=== PATIENT | female | born 1975 | race Caucasian/White ===

== ENCOUNTER 2020-12-14 14:57 | Outpatient (REF) | payer OTHER, SELFPAY ==
--- NOTE | ~2020-12-14 | MM_ITS ---
EXAMINATION: MM DIAGNOSTIC DIGITAL BREAST TOMOSYNTHESIS, BILATERAL US DIAGNOSTIC ULTRASOUND BREAST, LEFT CLINICAL INFORMATION: Due for yearly. 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 The lifetime risk of breast cancer based on the Tyrer-Cuzick Model is 12%. COMPARISON: Mammography: 12/08/2019, 06/02/2019, 09/28/2018, 09/16/2018 (BI-RADS 0, baseline); ultrasound left breast 12/08/2019, 06/02/2019, 09/28/2018. TECHNIQUE: Digital breast tomosynthesis is performed in both the craniocaudal and mediolateral oblique views along with computer-aided detection (CAD). Synthesized 2D images are generated from the tomosynthesis. Ultrasound left breast is targeted to the upper breast. Grayscale imaging and color Doppler are performed without and with harmonics. FINDINGS: The breasts are heterogeneously dense, which may obscure small masses (ACR BI-RADS breast composition Category c). Breast tissue composition borders on average fibroglandular. Parenchymal pattern is similar to prior studies. There is no developing density or interval mass or architectural abnormality. No abnormal calcifications. The probable fibroadenoma upper left breast is stable. There is a dermal lesion again seen overlying the upper right breast. The axilla are unremarkable. Ultrasound left breast demonstrates stable circumscribed nodule 12:00 position 4 cm from nipple measuring approximately 0.9 x 0.4 x 0.7 cm. This is similar in size, echogenicity, and shape when compared with prior exams dating back to initial diagnostic targeted ultrasound 09/28/2018. Initial dimensions also 0.9 x 0.4 x 0.7 cm on 09/28/2018. The lesion is now considered benign, most likely a fibroadenoma. Results are discussed with the patient at time of visit. MM/MM tomosynthesis diagnostic BI IMPRESSION: 1. No mammographic evidence of malignancy. 2. Nodule upper left breast stable when compared with prior diagnostic studies and now considered to be benign, likely a fibroadenoma. ASSESSMENT: BI-RADS 2: Benign RECOMMENDATION: Routine annual mammography screening. This patient's information was entered into a reminder system with a target due date for their next mammogram.
== END 2020-12-14 14:58 | disposition home or self-care (01) ==
LOC: HO.MAMMO 14:57
PROVIDERS: Visit Provider Internal Medicine
DX: R92.2 Inconclusive mammogram (principal)
CPT/HCPCS: 76642; 77062; 77066

== ENCOUNTER 2021-01-16 09:47 | Outpatient (REF) | payer OTHER, SELFPAY ==
--- NOTE | ~2021-01-16 | XR_ITS ---
EXAMINATION: XR LUMBOSACRAL SPINE WITH OBLIQUES CLINICAL INFORMATION: Low back pain COMPARISON: None TECHNIQUE: AP, both oblique, and lateral views of the lumbar spine. Lateral view of the lumbosacral junction. FINDINGS: There is normal lumbar lordosis. The vertebral heights, alignment and disc heights are normal. No visible acute fracture or dislocation seen. The soft tissues are normal. XR/XR lumbar spine 4V min IMPRESSION: Unremarkable lumbar spine exam.
== END 2021-01-16 09:48 | disposition home or self-care (01) ==
LOC: HO.XRAY 09:47
PROVIDERS: PCP Internal Medicine; Visit Provider Registered Nurse
DX: G89.29 Other chronic pain (principal); M54.5 Low back pain
CPT/HCPCS: 72110

== ENCOUNTER 2021-02-13 10:54 | Outpatient (REF) | payer OTHER, SELFPAY ==
--- NOTE | ~2021-02-13 | XR_ITS ---
EXAMINATION: XR KNEE, LEFT CLINICAL INFORMATION: Left knee pain COMPARISON: November 17, 2018 TECHNIQUE: Four views of the left knee. FINDINGS: There is no evidence of acute fracture or dislocation of the left knee. Left knee joint spaces are maintained. Mild spurring undersurface of the patella. There is a left knee effusion. XR/XR knee LT 4V IMPRESSION: Left knee effusion. Mild patellofemoral joint degenerative change.
== END 2021-02-13 10:55 | disposition home or self-care (01) ==
LOC: HO.XRAY 10:54
PROVIDERS: PCP Internal Medicine; Visit Provider Internal Medicine
DX: M25.562 Pain in left knee (principal)
CPT/HCPCS: 73564

== ENCOUNTER → 2021-02-20 12:22 | Outpatient (BNVA) | payer OTHER, SELFPAY | PROVIDERS: Visit Provider Orthopaedic Surgery | DX: S76.312A Strain of muscle, fascia and tendon of the posterior muscle group at thigh level, left thigh, initial encounter (principal) | CPT/HCPCS: 99202 ==

== ENCOUNTER 2021-03-30 09:59 | Outpatient (REF) | payer OTHER, SELFPAY ==
[2021-03-30 10:59] LABS: Alanine Aminotransferase 8 U/L (0-31); Albumin Level 4.4 g/dL (3.5-5.0); Alkaline Phosphatase 53 U/L (39-117); Anion Gap 13 (12-20); Aspartate Amino Transferase 13 U/L (5-31); Bilirubin Direct < 0.2 mg/dL (0.0-0.5); Bilirubin Total 0.3 mg/dL (0.0-1.0); Blood Urea Nitrogen 7 mg/dL (9-16); Calcium 9.3 mg/dL (8.4-10.2); Carbon Dioxide 26 mmol/L (22-29); Chloride 107 mmol/L (96-108); Estimated Glomerular Filt Rate > 60; Glucose Random 98 mg/dL (60-115); Potassium 4.5 mmol/L (3.3-5.1); Sodium 141 mmol/L (135-145); Total Protein 6.6 g/dL (6.5-8.0)
[2021-03-30 11:22] LABS: TSH reflex Free T4 0.55 uIU/mL (0.32-4.0)
== END 2021-03-30 10:00 | disposition home or self-care (01) ==
LOC: HO.LAB 09:59
PROVIDERS: PCP Internal Medicine; Visit Provider Internal Medicine
DX: Z00.00 Encounter for general adult medical examination without abnormal findings (principal)
CPT/HCPCS: 36415; 80048; 80076; 82306; 84443

== ENCOUNTER 2021-05-16 17:00 | Outpatient (RCR) | payer OTHER, SELFPAY ==
--- NOTE | 2021-04-18 18:21 | MHC.PT.EP ---
[facility] [place] Office [place] Office [place] Office [address] Shanthi Alba [address] [phone] F: [phone] F: [phone] F: [phone] F: [phone] Physical Therapy Plan of Care Date of Evaluation: Date of Surgery: n/a Diagnosis: Strain of muscle, fascia and tendon of the posterior muscle group at thigh level, left thigh Strain of L hamstring Assessment: Pt is a 46yo F who presents today with L knee pain after jumping in January. She presents with current impairments in pain, swelling, limited knee flexion, decreased strength, soft tissue restrictions and proper body mechanics. She is limited functionally by bending, squatting, prolonged standing, and walking. She is an excellent candidate for skilled PT services to address current impairments in order to facilitate return to PLOF. Frequency and Duration: The patient will be seen 2x/week for 4 weeks Short Term Goals: Pt will be I with HEP to promote self management of symptoms Pt will improve L knee flexion ROM by 5 degrees Residential Goals: Pt will improve hamstring and quad strength by 1 grade to improve ambulation tolerance. Pt will perform squatting with improved mechanics with pain < 2/10 to assist with work related tasks. Pt will demonstrate improvements in functional mobility as evidenced by statistically significant improvement in LEFI outcome measure Treatment Plan: Modalities to reduce pain, spasms and effusion. Manual therapy to restore motion and function. Therapeutic exercise to improve strength and flexibility. Neuromuscular re-education for posture and balance. Therapeutic activities to return to functional activities of daily living. Electronically signed by: Vidhya Stafford, PT, DPT Please sign and return to therapist. Thank you for your referral.
--- NOTE | 2021-06-07 11:50 | MHC.PT.DC ---
[facility] [place] Office [place] Office [place] Office [address] Shanthi Alba 140 [facility] [phone] F: [phone] F: [phone] F: [phone] F: [phone] Physical Therapy Discharge Report Diagnosis: Strain of muscle, fascia and tendon of the posterior muscle group at thigh level, left thigh Strain of L hamstring Date of Surgery: n/a Date of Evaluation: 04/18/21 Date of Discharge: 06/07/21 Treatments to Date: 6 Cancellations to Date: 3 No Shows to Date: 3 Discharge Status: Visit Non-compliance Discharge Summary: Pt last attended visit was 05/16/21. She has had 3 no-show's since last attended visit. Pt is being D/C from skilled PT services per [facility] attendance policy and visit non-compliance. Pt current level of function unknown at this time. Electronically signed by: Vidhya Stafford, PT, DPT Please sign and return to therapist. Thank you for your referral.
== END 2021-06-07 11:50 | disposition home or self-care (01) ==
LOC: HO.PT 17:00
PROVIDERS: PCP Internal Medicine; Visit Provider Orthopaedic Surgery
DX: S76.312A Strain of muscle, fascia and tendon of the posterior muscle group at thigh level, left thigh, initial encounter (principal)
CPT/HCPCS: 97110; 97140; 97150; 97161; 97164; 97530

== ENCOUNTER 2021-05-25 10:44 | Outpatient (REF) | payer OTHER, SELFPAY ==
--- NOTE | ~2021-05-25 | XR_ITS ---
EXAMINATION: XR CHEST CLINICAL INFORMATION: Abnormal weight loss COMPARISON: None TECHNIQUE: 2 views of the chest were obtained. FINDINGS: The cardiac and mediastinal contours are normal. There may be a small 3 mm left upper lobe nodule. This overlies the left anterior third rib. The lungs are otherwise clear. There is no pleural effusion or pneumothorax. Bony structures are unremarkable. XR/XR chest 2V IMPRESSION: Question small 3 mm left upper lobe nodule. Otherwise unremarkable exam.
== END 2021-05-25 10:45 | disposition home or self-care (01) ==
LOC: HO.XRAY 10:44
PROVIDERS: PCP Internal Medicine; Visit Provider Internal Medicine
DX: R63.4 Abnormal weight loss (principal)
CPT/HCPCS: 71046

== ENCOUNTER 2021-09-17 10:02 | Outpatient (REF) | payer OTHER, SELFPAY ==
[2021-09-17 10:46] LABS: COVID-19 Test Negative (Negative)
== END 2021-09-17 10:03 | disposition home or self-care (01) ==
LOC: HO.LAB 10:02
PROVIDERS: PCP Internal Medicine; Visit Provider Internal Medicine
DX: Z20.822 Contact with and (suspected) exposure to COVID-19 (principal)
CPT/HCPCS: 87635; C9803

== ENCOUNTER → 2022-03-05 14:26 | Outpatient (BNVA) | payer OTHER, SELFPAY | PROVIDERS: PCP Internal Medicine; Referring Provider Internal Medicine; Visit Provider Physician Assistant | DX: Z01.818 Encounter for other preprocedural examination (principal) | CPT/HCPCS: 99202 ==

== ENCOUNTER 2022-05-06 14:18 | Outpatient (REF) | payer OTHER, SELFPAY ==
--- NOTE | ~2022-05-06 | US_ITS ---
EXAMINATION: US SOFT TISSUE OF THE NECK CLINICAL INFORMATION: Mass posterior cervical. COMPARISON: None. TECHNIQUE: Linear transducer grayscale and color Doppler examination of the left posterior neck, 2 areas/lumps. FINDINGS: Limited imaging through the left neck or the lump area reveals small lymph node measuring 0.9 x 0.3 x 0.8 cm. This is oval shaped with central echogenic medulla. No increased vascularity seen. US/US soft tiss head and/or neck IMPRESSION: Small lump left posterior neck corresponds to a normal lymph node.
== END 2022-05-06 14:19 | disposition home or self-care (01) ==
LOC: HO.US 14:18
PROVIDERS: Visit Provider Family Medicine
DX: R59.0 Localized enlarged lymph nodes (principal)
CPT/HCPCS: 76536

== ENCOUNTER 2023-01-06 09:25 | Outpatient (REF) | payer MEDICAID, SELFPAY ==
--- NOTE | ~2023-01-06 | XR_ITS ---
EXAMINATION: XR CERVICAL SPINE CLINICAL INFORMATION: Right-sided neck pain/radiculopathy phone at COMPARISON: None available. TECHNIQUE: 3 views of the cervical spine were obtained. FINDINGS: There is mild straightening of cervical lordosis. The vertebral heights, alignment and disc heights are normal. There is no visible acute fracture, dislocation or subluxation seen. The prevertebral soft tissues are normal. XR/XR cervical spine 3V IMPRESSION: Mild straightening of cervical lordosis likely spasm. No visible acute fracture or dislocation seen.
== END 2023-01-06 09:26 | disposition home or self-care (01) ==
LOC: HO.HHCX 09:25
PROVIDERS: Visit Provider Family Medicine
DX: M54.2 Cervicalgia (principal); S29.012A Strain of muscle and tendon of back wall of thorax, initial encounter; M54.10 Radiculopathy, site unspecified; X58.XXXA Exposure to other specified factors, initial encounter; Y93.9 Activity, unspecified; Y92.9 Unspecified place or not applicable; Y99.9 Unspecified external cause status
CPT/HCPCS: 72040

== ENCOUNTER 2023-01-30 13:46 | Outpatient (RCR) | payer MEDICAID, SELFPAY | END 2023-03-19 07:51 | disposition home or self-care (01) | LOC: HO.PT 13:46 | PROVIDERS: PCP Internal Medicine; Visit Provider Family Medicine | DX: M54.10 Radiculopathy, site unspecified (principal) | CPT/HCPCS: 97110; 97140; 97161 ==

== ENCOUNTER 2023-04-02 09:00 | Outpatient (REF) | payer MEDICAID, SELFPAY ==
--- NOTE | 2023-04-02 09:06 | EMG_ITS ---
Right median and ulnar motor and sensory studies were performed. Right radial sensory study was performed. Right median and lateral antecubital brachial sensory studies were performed and needle examination was performed. IMPRESSION: 1. Mild right median neuropathy across carpal tunnel. 2. Mild right ulnar neuropathy across cubital tunnel. 3. No evidence of radiculopathy. MD REINA Newman/RACHEL / [id number]
== END 2023-04-02 09:01 | disposition home or self-care (01) ==
LOC: HO.NEURO 09:00
PROVIDERS: PCP Internal Medicine; Visit Provider Family Medicine
DX: M54.10 Radiculopathy, site unspecified (principal)
CPT/HCPCS: 95886; 95910

== ENCOUNTER 2023-07-30 14:28 | Outpatient (REF) | payer MEDICAID, SELFPAY | END 2023-07-30 14:29 | disposition home or self-care (01) | LOC: HO.HHCL 14:28 | PROVIDERS: Visit Provider Advanced Practice Midwife | DX: N89.8 Other specified noninflammatory disorders of vagina (principal); N92.6 Irregular menstruation, unspecified; E03.9 Hypothyroidism, unspecified | CPT/HCPCS: 36415; 84439; 84443; 87480; 87510; 87660 ==

== ENCOUNTER 2023-09-10 13:54 | Outpatient (REF) | payer MEDICAID, SELFPAY | END 2023-09-10 13:55 | disposition home or self-care (01) | LOC: HO.MAMMO 13:54 | PROVIDERS: PCP Internal Medicine; Visit Provider Advanced Practice Midwife | DX: Z12.31 Encounter for screening mammogram for malignant neoplasm of breast (principal) | CPT/HCPCS: 77063; 77067 ==

== ENCOUNTER → 2023-09-10 14:15 | Outpatient (BNV) | payer MEDICAID, SELFPAY | PROVIDERS: PCP Internal Medicine; Visit Provider Radiology Diagnostic Radiology | DX: Z12.31 Encounter for screening mammogram for malignant neoplasm of breast (principal) | CPT/HCPCS: 77063; 77067 ==

== ENCOUNTER 2023-10-29 08:53 | Outpatient (REF) | payer MEDICAID, SELFPAY ==
[2023-10-29 11:29] LABS: MANUAL DIFF FLAG NO
[2023-10-29 11:47] LABS: Basophils Absolute Auto 0.1 X10*3/uL (0.0-0.2); Basophils Percent Auto 1.3 % (0-2); Eosinophils Absolute Auto 0.2 X10*3/uL (0.0-0.4); Eosinophils Percent Auto 3.6 % (0-4); Hematocrit 44.3 % (37.0-47.0); Hemoglobin 14.5 g/dl (12.0-16.0); Imm Gran Abs Auto 0.02 X10*3/uL (0.00-0.03); Imm Gran Pct Auto 0.3 % (0.0-0.4); Lymphocytes Percent Auto 32.1 % (20-40); Mean Corpuscular HGB Conc 32.7 g/dl (31.0-35.0); Mean Corpuscular Hemoglobin 30.3 pg (27.0-33.0); Mean Corpuscular Volume 92.5 fL (80.0-98.0); Mean Platelet Volume 10.6 fL (9.4-12.3); Monocytes Absolute Auto 0.5 X10*3/uL (0.1-1.2); Monocytes Percent Auto 8.6 % (2-11); Neutrophils Absolute Auto 3.3 x10*3/uL (2.0-8.3); Neutrophils Percent Auto 54.1 % (45-73); Platelet Count 209 X10*3/uL (160-400); Red Blood Count 4.79 X10*6/uL (4.20-5.50); Red Cell Distribution Width 12.5 % (11.0-16.0); White Blood Count 6.1 X10*3/uL (4.8-10.8)
[2023-10-29 11:58] LABS: Iron 106 mcg/dL (30-160); Percent Iron Saturation 40 % (15-50); Total Iron Binding Capacity 264 mcg/dL (228-428); Unsaturated Iron Binding 158 ug/dL
[2023-10-29 12:16] LABS: TSH reflex Free T4 0.33 uIU/mL (0.32-4.0)
== END 2023-10-29 08:54 | disposition home or self-care (01) ==
LOC: HO.HHCL 08:53
PROVIDERS: Visit Provider Internal Medicine
DX: E61.1 Iron deficiency (principal); E03.9 Hypothyroidism, unspecified
CPT/HCPCS: 36415; 83540; 84443; 85025

== ENCOUNTER 2024-01-22 10:28 | Day surgery (SDC) | payer MEDICAID, SELFPAY ==
--- NOTE | 2024-01-21 12:12 | P.CONAN_ITS ---
Documented by User: Maria Fernanda Flores NP 01/21/24 12:12 HPI - Anesthesia Eval Consult details Narrative: 48yo F for Colonoscopy PMFSH Active Problems Active Problems: All Active Problems Swelling of right upper eyelid (Acute) Encounter for screening colonoscopy (Acute) Past Medical History Medical History (Updated 01/20/24 @ 14:36 by Blanca Braun RN) Hemorrhoids Hypothyroid Surgical History Surgical History Previous section History of appendectomy H/O thyroidectomy Social History Social History (Updated 03/05/22 @ 14:45 by Esther Davila PA-C) Household Members Other:: 2 kids Patient Tobacco Use Status: Current everyday Tobacco user Tobacco use type: Cigarette Cigarettes Per Day: 5 Use of substances other than those prescribed or required for medical reasons: No Are you DNR?: No Advance Directives: No Advance Directives Information Provided: Yes Current occupational status: employed Current occupation: Teacher at [employer]. Meds Allergies Allergy/AdvReac Type Severity Reaction Status Date / Time metronidazole Allergy Mild Itching Verified 03/05/22 15:28 Home Medications ?Medication ?Instructions ?Recorded ?Confirmed ?Last Taken ?Type bupropion HCl 300 mg 24 hr tablet, 300 mg PO QAM 02/20/21 01/20/24 Unknown History extended release lamotrigine 100 mg tablet 100 mg PO DAILY 02/20/21 01/20/24 Unknown History (Lamictal) levothyroxine 175 mcg capsule 175 mcg PO DAILY 02/20/21 01/20/24 Unknown History Exam Height,Weight and Vital Signs: Height 5 ft 4 in Assessment and Plan Assessment Anesthesia Assessment: Chart Reviewed Documented by User: Nayely Thacker MD 01/22/24 10:57 PMFSH Past Medical History Medical History (Updated 01/20/24 @ 14:36 by Blanca Braun RN) Hemorrhoids Hypothyroid Family History Family history of problems with anesthesia: No Surgical History Surgical History Previous section History of appendectomy H/O thyroidectomy History of Problems with Anesthesia: No Social History Social History (Updated 03/05/22 @ 14:45 by Esther Davila PA-C) Household Members Other:: 2 kids Patient Tobacco Use Status: Current everyday Tobacco user Tobacco use type: Cigarette Cigarettes Per Day: 5 Use of substances other than those prescribed or required for medical reasons: No Are you DNR?: No Advance Directives: No Advance Directives Information Provided: Yes Current occupational status: employed Current occupation: Teacher at [employer]. Meds Allergies Allergy/AdvReac Type Severity Reaction Status Date / Time metronidazole Allergy Mild Itching Verified 03/05/22 15:28 Home Medications ?Medication ?Instructions ?Recorded ?Confirmed ?Last Taken ?Type bupropion HCl 300 mg 24 hr tablet, 300 mg PO QAM 02/20/21 01/20/24 Unknown History extended release lamotrigine 100 mg tablet 100 mg PO DAILY 02/20/21 01/20/24 Unknown History (Lamictal) levothyroxine 175 mcg capsule 175 mcg PO DAILY 02/20/21 01/20/24 Unknown History Exam Airway Mallampati Class: II TM Dist: >3cm Neck ROM: Full Heart: rrr Lungs: cta Assessment and Plan Assessment Anesthesia Assessment: Anesthesia Plan Discussed Final Anesthetic Review Family History of Problems with Anesthesia: No History of Problems with Anesthesia: No NPO: Yes ASA Class: II Final Preanesthetic Review: No Changes in Pt Med Stat, Meds/Allgs Chart Reviewed and Consent Obtained/Reviewed Patient Risk: Low Procedure Risk: Low Anesthetic Plan Anesthetic Plan: MAC: Disposition: Standard PACU
--- NOTE | ~2024-01-22 | CT_ITS ---
EXAMINATION: CT COLONOGRAPHY CLINICAL INFORMATION: Incomplete colonoscopy. COMPARISON: None available. TECHNIQUE: Bowel preparation: Suboptimal. Significant retained material limits the study. Stool tagging with Gastrografin and barium: Not utilized. Colonic distention: CO2 mechanical insufflator used via enema tube with incomplete distention. Acquisition: Low dose imaging targeted to colonic was performed in the supine and prone positions. Procedure: No immediate complication reported. Review: The acquired images were reviewed in axial, coronal and sagittal planes. Additional 3-D fly through images were reviewed at an independent workstation. This CT examination was performed using dose optimization techniques as appropriate, variously including the following: *Automated exposure control *Adjustment of mA and/or kV according to patient size (this includes techniques or standardized protocols for targeted exams where dose is matched to indication/reason for exam; i.e. extremities or head) *Use of iterative reconstruction technique DLP: 485 mGy-cm FINDINGS: Colonic findings: The study is severely limited. The colon is not well distended. Retained material limits assessment. Small or moderate-sized abnormalities would not be detectable No large colonic mass demonstrated Non-colonic findings: No suspicious noncolonic findings demonstrated. There are some linear and reticular opacities in the lower chest on each side which are likely postinflammatory CT/CT colonography IMPRESSION: Essentially nondiagnostic examination due to incomplete distention and retained material. Small or moderate-sized abnormalities would not be detectable. No large colonic mass.
[2024-01-22 10:41] VITALS: BMI 27.1
[2024-01-22 10:43] VITALS: BP 112/66; PULSE 90; RESP 16; TEMP 36.3; O2SAT 99
[2024-01-22 10:51] LABS: UPreg QC Valid YES; Urine Pregnancy NEGATIVE (NEGATIVE)
[2024-01-22] MEDS: Lactated Ringers 1,000 ML 100 ML IVCONT (10:53)
--- NOTE | 2024-01-22 12:37 | MHC.SHP ---
Pre-Procedural Eval Section A - 24 Hr Update-Section A only Date of Service: 01/22/24 The patient is an INPATIENT: No The patient has been examined within 24 hours of the surgical procedure. The History & Physical has been completed within 30 days and I have reviewed it.: No Section B - Complete if H&P > 30 days Chief Complaint: screening Relevant Family History (Specify if Yes): No Relevant Social History: None Present Medications: see Short Stay Collaborative assessment Medical History: Significant History (Hypothyroidism) History of Previous Operations: Relevant previous surgery/procedure and date(s) (H/O thyroidectomy History of appendectomy Previous section) Allergies: Allergies Allergy/AdvReac Type Severity Reaction Status Date / Time metronidazole Allergy Mild Itching Verified 03/05/22 15:28 Review of Systems Sugical H&P ROS: Negative: Constitution, Cardiovascular, Respiratory and Gastrointestinal Exam Surgical H&P Exam: Normal: Heart, Normal: Lungs, Normal: Extremities and Normal: Abdomen Plan Diagnosis/Plan: Unchanged I have reviewed the history and physical and performed a pertinent physical examination on my patient. No changes have occurred unless specified. Time Spent With Patient Time: Total time managing care of this patient today ____ minutes.
--- NOTE | 2024-01-22 13:27 | HO.OPN-COLON ---
Colonoscopy Operative Note Operative Note Date of Service: 01/22/24 Narrative: COLONOSCOPY TILL THE HEPATIC FLEXURE WITH BIOPSIES Pre-op diagnosis: Colon cancer screening. Post-op diagnosis:? Colon polyps, hemorrhoids Endoscopist:? Mishel Wallace MD Anesthesia:?MAC Consent: Indications for the procedure and potential complications of bleeding, perforation, reaction to medications and missed diagnosis were discussed with the patient and informed consent was obtained. Instrument: Olympus PCF H 190 L pediatric colonoscope and CF H 190 L variable stiffness adult colonoscope Monitoring: Vital signs and clinical assessment, intermittent blood pressure monitoring, continuous EKG monitoring, Pulse oximetry and Carbon Dioxide monitoring were done throughout the procedure. Please see anesthesia flowsheet. Colon withdrawl time was 15 minutes. Procedure: The patient was placed in the left lateral decubitis position and pre-procedure medications were administered. After a digital rectal examination of the ano-rectum, the video colonoscope was inserted into the rectum and advanced through the colon to the hepatic flexure. It was not possible to advance further due to a long and redundant colon. Pediatric colonoscope was removed, and an adult colonoscope was introduced into the rectum and advanced to the hepatic flexure. It was not possible to advanced further despite repositioning the patient to the supine and right lateral decubitus position. The colonoscope was slowly withdrawn in a retrograde panoramic fashion and the colon mucosa was carefully examined including a retroflexed view of the rectum. Findings and interventions are described below. Procedure Difficulty: LLQ pressure was applied to intubate the ascending colon Incomplete colonoscopy due to a long and redundant colon Findings: Terminal Ileum: Not evaluated Cecum: Normal Ascending Colon: Normal Transverse Colon: Three 4-5 mm sessle polyps - removed with a cold biopsy Descending Colon: Normal Sigmoid Colon: Normal Rectum: Normal Ano-rectum: Moderate internal hemorrhoids Colon preparation: Excellent, after some irrigation. [place] Bowel Preparation Scale Right colon; 3 Transverse colon: 3 Left colon; 3 (0 = Unprepared colon segment with mucosa not seen due to solid stool that cannot be cleared. 1 = Portion of mucosa of the colon segment seen, but other areas of the colon segment not well seen due to staining, residual stool and/or opaque liquid. 2 = Minor amount of residual staining, small fragments of stool and/or opaque liquid, but mucosa of colon segment seen well. 3 = Entire mucosa of colon segment seen well with no residual staining, small fragments of stool or opaque liquid) Impression and Post Procedure Diagnosis: Colonoscopy Findings: Three small polyps were removed Moderate hemorrhoids on retroflexed exam. Plan: I will send a letter with biopsy results. Patient will be scheduled for a CT colonography to examine the right colon. Repeat Colonoscopy in 3-5 years if polyps are adenomatous and 10 year if polyps are hyperplastic. Above findings were reviewed with the patient and relevant handouts were given and the discharge area. BIOPSIES SHOWED: Colon, transverse, 3 polyps: Colonic mucosa with minimal hyperplastic changes (2 pieces) and colonic mucosa (1 piece) with no specific change; negative for adenomatous dysplasia ADDENDUM: CT COLONOGRAPHY SHOWED: Colonic findings: The study is severely limited. The colon is not well distended. Retained material limits assessment. Small or moderate-sized abnormalities would not be detectable No large colonic mass demonstrated Non-colonic findings: No suspicious noncolonic findings demonstrated. There are some linear and reticular opacities in the lower chest on each side which are likely postinflammatory IMPRESSION: Essentially nondiagnostic examination due to incomplete distention and retained material. Small or moderate-sized abnormalities would not be detectable. No large colonic mass. On 01/29/24 @ 17:58 Mishel Wallace Wrote To Esther Davila Pt called with biopsy and CT colonography results. Advised [address] colonography versus colonoscopy with a single or double balloon enteroscope
[2024-01-22 13:28] VITALS: BP 100/54; PULSE 79; RESP 18; TEMP 36.3; O2SAT 98
[2024-01-22 13:43] VITALS: BP 105/67; PULSE 67; RESP 16; O2SAT 100
[2024-01-22] MEDS: Acetaminophen 325 MG TABLET PO (13:44)
[2024-01-22 13:58] VITALS: BP 105/66; PULSE 80; RESP 15; TEMP 36.4; O2SAT 100
--- NOTE | 2024-01-22 14:28 | PC.NURSE ---
Patient back ffrom CT scan . Dr. Wallace at bedside. States patient an be discharged at this time.
== END 2024-01-22 15:00 | disposition home or self-care (01) ==
PROVIDERS: Nurse Practitioner; PCP Internal Medicine; Visit Provider Internal Medicine Gastroenterology
PROC: 0DJD8ZZ Inspection of Lower Intestinal Tract, Via Natural or Artificial Opening Endoscopic (ICD-10-PCS; CPT 45378; principal; 2024-01-22 11:10)
DX: Z12.11 Encounter for screening for malignant neoplasm of colon (principal); Q43.8 Other specified congenital malformations of intestine; K63.5 Polyp of colon; K64.8 Other hemorrhoids; R14.0 Abdominal distension (gaseous); Z79.899 Other long term (current) drug therapy; Z88.8 Allergy status to other drugs, medicaments and biological substances
CPT/HCPCS: 45380; 74261; 81025; 88305; J2704

== ENCOUNTER → 2024-01-22 10:28 | Outpatient (BNV) | payer MEDICAID, SELFPAY | PROVIDERS: PCP Internal Medicine; Visit Provider Internal Medicine Gastroenterology | DX: Z12.11 Encounter for screening for malignant neoplasm of colon (principal); K63.5 Polyp of colon; K64.8 Other hemorrhoids | CPT/HCPCS: 45380 ==

== ENCOUNTER 2024-04-18 14:01 | Outpatient (REF) | payer MEDICAID, SELFPAY ==
[2024-04-18 17:11] LABS: Hematocrit 40.8 % (37.0-47.0); Hemoglobin 13.4 g/dl (12.0-16.0); Mean Corpuscular HGB Conc 32.8 g/dl (31.0-35.0); Mean Corpuscular Hemoglobin 30.6 pg (27.0-33.0); Mean Corpuscular Volume 93.2 fL (80.0-98.0); Mean Platelet Volume 10.7 fL (9.4-12.3); Platelet Count 205 X10*3/uL (160-400); Red Blood Count 4.38 X10*6/uL (4.20-5.50); Red Cell Distribution Width 13.1 % (11.0-16.0); White Blood Count 7.2 X10*3/uL (4.8-10.8)
[2024-04-18 17:16] LABS: Estimated Average Glucose 88 mg/dL; Hemoglobin A1c % 4.7 % (<6.0)
[2024-04-18 17:40] LABS: Alanine Aminotransferase 11 U/L (0-31); Albumin Level 4.4 g/dL (3.5-5.0); Alkaline Phosphatase 50 U/L (39-117); Anion Gap 11 (12-20); Aspartate Amino Transferase 12 U/L (5-31); Bilirubin Direct 0.1 mg/dL (0.0-0.5); Bilirubin Total 0.3 mg/dL (0.0-1.0); Blood Urea Nitrogen 9 mg/dL (9-16); Calcium 9.4 mg/dL (8.4-10.2); Carbon Dioxide 25 mmol/L (22-29); Chloride 109 mmol/L (96-108); Estimated Glomerular Filt Rate > 60; Glucose Random 105 mg/dL (60-115); Potassium 3.6 mmol/L (3.3-5.1); Sodium 141 mmol/L (135-145)
[2024-04-18 17:47] LABS: Free T4 (Free Thyroxine) 1.07 ng/dL (0.71-1.85); Thyroid Stimulating Hormone 0.39 uIU/mL (0.32-4.0); Vitamin D 25-OH Total 41.3 ng/mL (>30)
[2024-04-18 17:50] LABS: Folate 11.5 ng/mL (> or = 4.0); Vitamin B12 347 pg/mL (200-900)
[2024-04-19 15:13] LABS: RPR Rapid Plasma Reagin NON-REACTIVE (NON-REACTIVE)
== END 2024-04-18 14:02 | disposition home or self-care (01) ==
LOC: HO.HHCL 14:01
PROVIDERS: Visit Provider Family Medicine
DX: R68.89 Other general symptoms and signs (principal)
CPT/HCPCS: 36415; 80048; 80076; 82306; 82607; 82746; 83036; 84439; 84443; 85027; 86592

== ENCOUNTER 2024-08-31 15:34 | Outpatient (REF) | payer MEDICAID, SELFPAY ==
[2024-08-31 16:25] LABS: MANUAL DIFF FLAG NO
[2024-08-31 16:29] LABS: Basophils Absolute Auto 0.1 X10*3/uL (0.0-0.2); Basophils Percent Auto 1.6 % (0-2); Eosinophils Absolute Auto 0.2 X10*3/uL (0.0-0.4); Eosinophils Percent Auto 2.7 % (0-4); Hematocrit 43.7 % (37.0-47.0); Hemoglobin 14.8 g/dl (12.0-16.0); Imm Gran Abs Auto 0.03 X10*3/uL (0.00-0.03); Imm Gran Pct Auto 0.4 % (0.0-0.4); Lymphocytes Absolute Auto 2.4 X10*3/uL (1.2-4.9); Lymphocytes Percent Auto 31.2 % (20-40); Mean Corpuscular HGB Conc 33.9 g/dl (31.0-35.0); Mean Corpuscular Hemoglobin 30.8 pg (27.0-33.0); Mean Corpuscular Volume 90.9 fL (80.0-98.0); Mean Platelet Volume 9.9 fL (9.4-12.3); Monocytes Absolute Auto 0.5 X10*3/uL (0.1-1.2); Monocytes Percent Auto 6.5 % (2-11); Neutrophils Absolute Auto 4.4 x10*3/uL (2.0-8.3); Neutrophils Percent Auto 57.6 % (45-73); Platelet Count 255 X10*3/uL (160-400); Red Blood Count 4.81 X10*6/uL (4.20-5.50); Red Cell Distribution Width 13.9 % (11.0-16.0); White Blood Count 7.7 X10*3/uL (4.8-10.8)
[2024-08-31 16:35] LABS: Appearance Urine Clear; Color Urine Yellow; Glucose Urine UA Negative (Negative); Leukocyte Esterase Urine Negative (Negative); Nitrite Urine Negative (Negative); PH 6.5 (5.0-9.0); Urine Blood Negative (Negative); Urine Ketones Negative (Negative); Urine Protein Negative (Neg-Trace)
[2024-08-31 16:41] LABS: Bacteria Urine None Seen (None Seen); Hyaline Casts Urine 0-2 /LPF (0-2); RBC Urine 0-2 /HPF (0-2); Squamous Epithelial Cell Urine 0-2 /HPF (0-2); WBC Urine 0-5 /HPF (0-5)
[2024-08-31 17:12] LABS: TSH reflex Free T4 5.81 uIU/mL (0.32-4.0)
[2024-08-31 17:53] LABS: Free T4 (Free Thyroxine) 1.03 ng/dL (0.71-1.85)
== END 2024-08-31 15:35 | disposition home or self-care (01) ==
LOC: HO.HHCL 15:34
PROVIDERS: Visit Provider General Practice
DX: R30.0 Dysuria (principal); E61.1 Iron deficiency; E03.9 Hypothyroidism, unspecified
CPT/HCPCS: 36415; 81001; 84439; 84443; 85025

== ENCOUNTER 2024-12-19 08:36 | Emergency (ER) | payer MEDICAID, SELFPAY ==
[2024-12-19 08:37] VITALS: BP 122/78; PULSE 122; RESP 19; TEMP 37.3; O2SAT 98; BMI 26.6
--- OUTSIDE RECORDS SUMMARY | 2024-12-19 08:50 | XMS_ITS | Encounter Summary ---
Author Organization [facility] Address [address] [place] [address] [address] [place] [address] Care Team Providers Care Research Aide Name Role Phone Adelina Moore MD Primary Care Provide r Encounter Details Date Type Department Care Team ([facility] st Contact Info) Description 07/31/2023 Orders Only [facility] MEDICINE [address] [place], [place] [phone] Adelina Moore MD [address] [place], [place] [phone] Acquired hypothyroidism (Primary Dx) Social History Tobacco Use Types Packs/Day Years Used Date Smoking Tobacco: Former Cigarettes Smokeless Tobacco: Never Alcohol Use Standard Drinks/Week Comments Not Currently 0 (1 standard drink = 0.6 oz pur e alcohol) Comments No Sex and Gender Information Value Date Recorded Sex Assigned at Female 05/26/2022 10:35 AM EDT Legal Sex Female 10:35 AM EDT Gender Identity Female 05/26/2022 10:35 AM EDT Sexual Orientation Choose not to disclose 2021 10:35 AM EDT documented as of this encounter Plan of Treatment Not on file documented as of this encounter Visit Diagnoses Diagnosis Acquired hypothyroidism- Primary Unspecified hypothyroidism documented in this encounter Care Teams Research Aide Relationship Specialty Start Date End Date Adelina Moore MD [address], [place] [phone] PCP - General Family Medicine 09/14/18 documented as of this encounter
[2024-12-19 08:59] LABS: IDNOW Serial# 58CA691E; Strep A Nucleic Acid Positive (Negative)
--- NOTE | 2024-12-19 09:04 | ED.GENADULT ---
HPI - General Adult General Chief complaint: General Medical Stated complaint: Sore Throat Ear Pain Time Seen by Provider: 12/19/24 09:04 Source: patient, RN notes reviewed and old records reviewed Mode of arrival: ambulatory Limitations: no limitations History of Present Illness ED Provider: Nataliia [facility] narrative: Patient is a 49-year-old female presenting to the emergency department with complaint of sore throat, painful swallowing and fever for the past 3 days. Also complains of bilateral ear pain. Has been using ibuprofen which has been improving her fever. Denies difficulty swallowing, is able to manage secretions. Denies abdominal pain, nausea, vomiting, diarrhea. Denies cough or shortness of breath. MD complaint: Sore throat Onset (ago): day(s) Related Data Home Medications ?Medication ?Instructions ?Recorded ?Confirmed bupropion HCl 300 mg 24 hr tablet, 300 mg PO QAM 02/20/21 01/20/24 extended release lamotrigine 100 mg tablet 100 mg PO DAILY 02/20/21 01/20/24 (Lamictal) levothyroxine 175 mcg capsule 175 mcg PO DAILY 02/20/21 01/20/24 Previous Rx's ?Medication ?Instructions ?Recorded amoxicillin 500 mg capsule 500 mg PO Q12H #20 caps 12/19/24 Allergies Allergy/AdvReac Type Severity Reaction Status Date / Time metronidazole Allergy Mild Itching Verified 12/19/24 08:39 Review of Systems Review of Systems: As per HPI Yes all other systems are reviewed and are negative Constitutional: Constitutional: Reports as per HPI [facility] Past Medical History Medical History (Updated 12/19/24 @ 09:13 by Taty William NP) Hemorrhoids Hypothyroid Surgical History Previous section History of appendectomy H/O thyroidectomy Social History Social History (Updated 03/05/22 @ 14:45 by Esther Davila PA-C) Household Members Other:: 2 kids Patient Tobacco Use Status: Current everyday Tobacco user Tobacco use type: Cigarette Cigarettes Per Day: 5 Advance Directives: No Advance Directives Information Provided: No Do you have a plan to hurt others: No Plan Current occupational status: employed Current occupation: Teacher at [employer]. Physical Exam ED Vital Signs: Vital Signs - 24 hr 12/19/24 08:37 Temperature 99.1 F Pulse Rate 122 H Respiratory Rate 19 Blood Pressure 122/78 Pulse Oximetry 98 Oxygen Delivery Method Room Air BMI result Body Mass Index 26.6 Vital signs have been reviewed and appear to be correct. Blood pressure normal. Heart rate tachycardic. Respiratory rate normal. Temperature normal. Oxygen saturation normal. Const General: cooperative, healthy appearing and no acute distress Orientation/consciousness: oriented to person, oriented to place, oriented to time and patient oriented x3 Limitations: no limitations HENMT Head: Yes normocephalic and Yes atraumatic Ears: external ears normal, EAC's normal, mastoids normal bilaterally, no periauricular adenopathy and TM abnormal erythematous bilateral; not bulging and not with effusion General nose exam: Normal external nose present and Normal nasal mucous membranes and turbinates present Face and sinus: Yes face symmetric Mouth: oropharynx normal, moist mucous membranes, no audible dysphonia, no drooling and no trismus Throat: Yes uvula midline and Yes abnormal tonsil (erythema, edema bilat, no exudate) Eyes Pupils: Equal, round and reactive pupils present Neck Neck: Yes normal visual inspection, Yes no lymphadenopathy and Yes supple Resp Effort & Inspection: normal respiratory effort and able to speak in complete sentences Auscultation: clear to auscultation bilaterally Cardio Rate: regular rate Rhythm: regular rhythm Heart sounds: S1 normal heart sound present and S2 normal heart sound present GI Palpation (GI): Soft to palpation and nontender Auscultation: normoactive bowel sounds General: Yes no CVA tenderness Back/Spine/Pelvis Back: no CVA tenderness Skin General skin exam: elasticity normal and turgor normal Neuro General: oriented to person, oriented to place, oriented to time, patient oriented x3, moves all extremities, no focal motor deficits and CN's II-XI intact bilaterally Cranial nerves: Yes Equal, round and reactive pupils present Cognition (Neuro): normal cognition Extrem General: Yes full ROM, Yes no pedal edema and Yes no calf tenderness Psych Mental Status: mental status grossly normal Affect: normal affect Thought process: Normal thought process present Medical Decision Making Medical Decision Making MDM Narrative: Patient is a 49-year-old female presenting to the emergency department with complaint of sore throat, painful swallowing and fever for the past 3 days. Also complains of bilateral ear pain. On exam patient is awake, A+Ox3, tachycardic, VS otherwise WNL, afebrile, normal neurological exam without focal deficits, physical exam findings as above. Given reported symptoms and physical exam findings, initial differential includes but is not limited to strep versus viral pharyngitis, AOM, otitis externa, viral illness, COVID, flu. Strep swab positive, patient updated on results. Tachycardia likely due to infection. Patient currently afebrile. Will discharge home on amoxicillin. Advised she is still contagious until she has been on antibiotics for 24 hours. Instructed her to throughout toothbrush after 24 hours on antibiotics. Return precautions discussed at bedside. Patient verbalized understanding of and agreement with plan. Differential Diagnosis Differential Diagnoses: The differential diagnosis associated with the presentation includes [facility] per [facility] Admission/Observation Consideration of admission/observation: Escalation of care including admission/observation considered Patient would have been admitted to the hospital had their work up had any findings where hospital admission was appropriate and their clinical presentation warranted hospital admission. Lab Data [facility] Lab Attestation statement: I reviewed the patient's lab results. As per [facility] Labs: Lab Results 12/19/24 Range/Units 08:50 S. pyogenes GrpA CHAR Positive A (Negative) External Record Review External record reviewed: Inpatient record, Office record and Outpatient record Prescription Management I considered prescription management with: Antibiotic Discharge Plan Discharge Clinical Impression: Acute streptococcal pharyngitis Patient Disposition: Home, Self-Care Instructions: Strep Throat (DC) Additional Instructions: You were evaluated in the emergency department today for a sore throat. Your strep swab was positive. You are being prescribed antibiotics, please complete the full course as prescribed even if your symptoms improve. You are contagious until you have taken the antibiotics for 24 hours. Be sure to drink adequate fluids. You can also gargle with warm salt water several times daily. You can use Tylenol and ibuprofen per package directions as needed for fever or discomfort. After you have been on antibiotics for 24 hours, you should throw away your toothbrush and get a new one. Follow-up with your primary care provider this week. Return to the emergency department if you develop difficulty swallowing, worsening pain, shortness of breath, are unable to swallow your saliva, fever not improved with Tylenol/ibuprofen, or any other concerning symptoms. Prescriptions: New amoxicillin 500 mg capsule 500 mg PO Q12H Qty: 20 0RF No Action bupropion HCl 300 mg tablet extended release 24 hr 300 mg PO QAM lamotrigine [Lamictal] 100 mg tablet 100 mg PO DAILY levothyroxine 175 mcg capsule 175 mcg PO DAILY Stand Alone Forms: Work/School Release Print Language: Samoan
[2024-12-19 09:33] LABS: Influenza A PCR NEGATIVE (Negative); Influenza B PCR NEGATIVE (Negative); Resp Syncy Virus RNA Qual PCR NEGATIVE (Negative); SARS COV2 PCR INHOUSE NEGATIVE (Negative)
[2024-12-19 09:34] VITALS: BP 122/78; PULSE 122; RESP 19; TEMP 37.3; O2SAT 98
== END 2024-12-19 09:37 | disposition home or self-care (01) ==
PROVIDERS: Emergency Provider Emergency Medicine; PCP Internal Medicine
DX: J02.0 Streptococcal pharyngitis (principal); H92.03 Otalgia, bilateral; F17.210 Nicotine dependence, cigarettes, uncomplicated; Z03.818 Encounter for observation for suspected exposure to other biological agents ruled out
CPT/HCPCS: 0241U; 87651; 99282; 99283

== ENCOUNTER 2025-01-30 07:15 | Outpatient (REF) | payer MEDICAID, SELFPAY ==
[2025-01-30 07:30] LABS: MANUAL DIFF FLAG NO
[2025-01-30 07:56] LABS: White Blood Count 5.6 X10*3/uL (4.8-10.8)
[2025-01-30 07:57] LABS: Hematocrit 43.8 % (37.0-47.0); Hemoglobin 14.3 g/dl (12.0-16.0); Imm Gran Abs Auto 0.02 X10*3/uL (0.00-0.03); Imm Gran Pct Auto 0.4 % (0.0-0.4); Lymphocytes Absolute Auto 2.0 X10*3/uL (1.2-4.9); Mean Corpuscular HGB Conc 32.6 g/dl (31.0-35.0); Mean Corpuscular Hemoglobin 29.9 pg (27.0-33.0); Mean Corpuscular Volume 91.4 fL (80.0-98.0); NRBC Abs Auto 0.000 X10*3/uL (0.0-0.012); NRBC Pct Auto 0.0 /100WBC (0.0-0.2); Platelet Count 229 X10*3/uL (160-400); Red Blood Count 4.79 X10*6/uL (4.20-5.50)
[2025-01-30 08:03] LABS: INTERNATIONAL NORM RATIO 0.9 (0.9-1.1); Prothrombin Time 10.6 SEC (10.9-12.4)
[2025-01-30 08:06] LABS: Partial Thromboplastin Time 32.5 SEC (26.0-36.8)
[2025-01-30 08:53] LABS: Alanine Aminotransferase 18 U/L (0-31); Albumin Level 4.5 g/dL (3.5-5.0); Alkaline Phosphatase 59 U/L (39-117); Anion Gap 11 (12-20); Aspartate Amino Transferase 19 U/L (5-31); Blood Urea Nitrogen 12 mg/dL (9-16); Calcium 9.0 mg/dL (8.4-10.2); Carbon Dioxide 27 mmol/L (22-29); Chloride 106 mmol/L (96-108); Cholesterol 184 mg/dL (<200); Estimated Glomerular Filt Rate 59; HDL Cholesterol 55 mg/dL (>40); Potassium 4.3 mmol/L (3.3-5.1); Sodium 140 mmol/L (135-145); Total Protein 7.0 g/dL (6.5-8.0); Triglycerides 53 mg/dL (<150)
[2025-02-01 11:53] LABS: Anti Nuclear Antibody Screen NEGATIVE (NEGATIVE)
== END 2025-01-30 07:16 | disposition home or self-care (01) ==
LOC: HO.LAB 07:15
PROVIDERS: PCP Internal Medicine; Visit Provider Internal Medicine
DX: R23.3 Spontaneous ecchymoses (principal); E03.9 Hypothyroidism, unspecified
CPT/HCPCS: 36415; 80053; 80061; 84443; 85025; 85610; 85730; 86038

== ENCOUNTER 2025-02-27 09:23 | Outpatient (REF) | payer MEDICAID, SELFPAY ==
--- NOTE | ~2025-02-27 | XR_ITS ---
EXAMINATION: XR LUMBOSACRAL SPINE CLINICAL INFORMATION: left low back pain COMPARISON: 01/16/2021. TECHNIQUE: Three views of the lumbosacral spine. FINDINGS: There is no scoliosis. There is normal lumbar lordosis. There is no subluxation. There is no compression deformity, fracture, or suspicious bone lesion. There is normal facet alignment. No significant facet arthropathy. Disc spaces demonstrate minimal disc degeneration at L2-3 and L5-S1. Remainder of the disc spaces are preserved. SI joints and sacrum appear normal. No soft tissue abnormalities. XR/XR lumbar spine 2-3V IMPRESSION: 1. No acute bony abnormalities of the lumbar spine. 2. Minimal disc degeneration at L2-3 and L5-S1. Electronically signed by: Hussein Mcnair MD 02/27/2025 10:08 AM EDT
--- OUTSIDE RECORDS SUMMARY | 2025-02-27 10:01 | XMS_ITS | Encounter Summary ---
Author Organization [facility] Address [address] [place] [address] Phone Care Team Providers Care Hand Tapper Name Role Phone Pcp, Unknown Primary Care Provider Unavailabl e Encounter Details Date Type Department Care Team (Late st Contact Info) Description 05/31/2020 Ancillary Orders [facility] [address] [facility] [address], [address] [place], [place] [phone] Rebekah De Luna MD [address] [place] [address] [email or web address] Social History Tobacco Use Types Packs/Day Years Used Date Smoking Tobacco: Never Assessed Comments Unknown Sex and Gender Information Value Date Recorded Sex Assigned at Not on file Legal Sex Female 8:22 AM EST Gender Identity Not on file Sexual Orientation Not on file documented as of this encounter Plan of Treatment Not on file documented as of this encounter Visit Diagnoses Not on filedocumented in this encounter Care Teams Hand Tapper Relationship Specialty Start Date End Date Pcp, Unknown PCP - General 05/29/20 documented as of this encounter Additional Source Comments The information contained in this document represents components of the legal health record. It is not the complete legal health record.[facility]
--- OUTSIDE RECORDS SUMMARY | 2025-02-27 10:01 | XMS_ITS | Encounter Summary ---
Author Organization [employer] Address [address] [place] [address] [address]t [place] [address] Care Team Providers Care Disease Intervention Specialist Name Role Phone Adelina Moore MD Primary Care Provide r Encounter Details Date Type Department Care Team (Late Contact Info) Description 07/31/2023 Orders Only [facility] [address] [place] [address] [phone] Adelina Moore MD [address] [place] [address] [phone] Acquired hypothyroidism (Primary Dx) Social History Tobacco [...] as of this encounter Plan of Treatment Upcoming Encounters Date Type Department Care Team (Late st Contact Info) Description 04/05/2025 3:00 PM EDT Telemedicine [facility] [address] [place] [address] [phone] Adelina Moore MD [address] [place] [address] [phone] documented as of this encounter Visit Diagnoses Diagnosis Acquired hypothyroidism- Primary Unspecified hypothyroidism documented in this encounter Care Teams Disease Intervention Specialist Relationship Specialty Start Date End Date Adelina Moore MD [address] [place] [address] PCP - General Family Medicine 09/14/18 documented as of this encounter
== END 2025-02-27 09:24 | disposition home or self-care (01) ==
LOC: HO.HHCX 09:23
PROVIDERS: Visit Provider Emergency Medicine
DX: M54.50 Low back pain, unspecified (principal)
CPT/HCPCS: 72100

== ENCOUNTER → 2025-02-27 09:31 | Outpatient (BNV) | payer MEDICAID, SELFPAY | PROVIDERS: Visit Provider Radiology Diagnostic Radiology | DX: M54.50 Low back pain, unspecified (principal) | CPT/HCPCS: 72100 ==

== ENCOUNTER 2025-04-25 08:02 | Outpatient (REF) | payer MEDICAID, SELFPAY ==
--- NOTE | 2025-04-25 08:13 | EMG_ITS ---
Chief complaint: Right wrist pain Reason for referral: Evaluate for Carpal Tunnel Syndrome Referred by: Dr. Mele Jeffrey Procedure done: Right upper extremity NCS and EMG Description right median and ulnar motor and sensory studies were performed right radial sensory and median and lateral antecubital brachial sensory studies were performed an EMG needle examination was performed. There was mild prolongation of median mixed distal latencies with slow conduction velocity. Otherwise no significant abnormality was noted. Impression: 1. Mild right median neuropathy across carpal tunnel 2. Previously seen right ulnar neuropathy has improved. MTDD
--- OUTSIDE RECORDS SUMMARY | 2025-04-25 08:19 | XMS_ITS | Encounter Summary ---
Author Organization [facility] Address [address] [place] [phone] Phone Care Team Providers Care Rn Case Mgr Name Role Phone Pcp, Unknown Primary Care Provider Unavailabl e Encounter Details Date Type Department Care Team (Late st Contact Info) Description 05/31/2020 Procedure [facility] [address] [place] [address] [place] [address] Social History Tobacco Use Types Packs/Day Years [...] on filedocumented in this encounter Care Teams Rn Case Mgr Relationship Specialty Start Date End Date Pcp, Unknown PCP - General 05/29/20 documented as of this encounter Additional Source Comments The information contained in this document represents components of the legal health record. It is not the complete legal health record.[facility]
--- OUTSIDE RECORDS SUMMARY | 2025-04-25 08:19 | XMS_ITS | Encounter Summary ---
Author Organization [employer] Address [address] [place] [address] [address]t [place] [address] Care Team Providers Care Shopping Investigator Name Role Phone Adelina Moore MD Primary Care Provide r Encounter Details Date Type Department Care Team (Late st Contact Info) Description 12/10/2022 Abstract [facility]ULT D[facility]AL [address] [place] [address] Jie, Maryan [address] [place] [address] Social History Tobacco Use Types Packs/Day Years Used Date Smoking Tobacco: Former Cigarettes Smokeless Tobacco: Never Comments Unknown Sex and Gender Information Value Date Recorded Sex Assigned at Female 05/26/2022 10:35 AM EDT Legal Sex Female 10:35 AM EDT Gender Identity Female 05/26/2022 10:35 AM EDT Sexual Orientation Choose not to disclose 2021 10:35 AM EDT COVID-19 Exposure Response Date Recorded In the last 10 days, have yo u been in contact with someone who was confirmed or suspected to have Coronavirus/COVID-19? No / Unsure 12/03/2022 7:56 AM EDT documented as of this encounter Plan of Treatment Not on file documented as of this encounter Visit Diagnoses Not on filedocumented in this encounter Care Teams Shopping Investigator Relationship Specialty Start Date End Date Adelina Moore MD [address] [place] [address] PCP - General Family Medicine 09/14/18 documented as of this encounter
--- OUTSIDE RECORDS SUMMARY | 2025-04-25 08:19 | XMS_ITS | Encounter Summary ---
Author Organization [employer] Address [address] [place] [address] 7t [place] [address] Care Team Providers Care Bartender Manager Name Role Phone Adelina Moore MD Primary Care Provide r Encounter Details Date Type Department Care Team (Late st Contact Info) Description 07/31/2023 Orders Only [facility] [address] [place], [place] [phone] Adelina Moore MD [address] [place], [place] [phone] Acquired hypothyroidism (Primary Dx) Social History Tobacco [...] hypothyroidism documented in this encounter Care Teams Bartender Manager Relationship Specialty Start Date End Date Adelina Moore MD [address] [place], [place] [phone] PCP - General Family Medicine 09/14/18 documented as of this encounter
--- OUTSIDE RECORDS SUMMARY | 2025-04-25 08:19 | XMS_ITS | Encounter Summary ---
Author Organization [employer] Address [address] [place] [address] Care Team Providers Care Continuous Mining Operator Name Role Phone Adelina Moore MD Primary Care Provide r Encounter Details Date Type Department Care Team (Late st Contact Info) Description 01/25/2024 Orders Only [facility] [address] [place] [address] Provider, MD Sudeep Social History Tobacco Use Types Packs/Day Years Used Date Smoking Tobacco: Former Cigarettes Smokeless Tobacco: Never Alcohol Use Standard Drinks/Week Comments Not Currently 0 (1 standard drink = 0.6 oz pur e alcohol) Depression Answer Date Recorded Patient Health Questionnaire-9 Score 0 08/21/2023 Patient Health Questionnaire-9 Score 0 08/21/2023 Last PHQ-9: Questionnaire Data Not on file 0 08/21/2023 Housing Stability Answer Date Recorded What is your housing situation today? I have amado sing 08/21/[address] you li ve. Do you have problems with any of the following? None of the above 08/21/2023 Food Insecurity Answer Date Recorded Within the past 12 months, y ou worried that your food would run out before you got money to buy more: Never True 08/21/2023 Within the past 12 months,th e food you bought just didn't last and you didn't have enough money to get more: Never True Transportation Answer Date Recorded In the past 12 months, has l ack of transportation kept you from medical appts, meetings, work or from getting things needed for daily living? No 08/21/2023 Utilities Answer Date Recorded In the past 12 months, has t he [place], gas, oil or water company threatened to shut off services in your home? No 08/21/2023 Depression Answer Date Recorded Patient Health Questionnaire-2 Score 0 08/21/2023 Comments No Sex and Gender Information Value Date Recorded Sex Assigned at Female 05/26/2022 10:35 AM EDT Legal Sex Female 10:35 AM EDT Gender Identity Female 05/26/2022 10:35 AM EDT Sexual Orientation Choose not to disclose 2021 10:35 AM EDT documented as of this encounter Plan of Treatment Not on file documented as of this encounter Procedures Procedure Name Priority Date/Time Associated Diagnosis Comments HM COLONOSCOPY Routine 01/22/2024 12:00 PM EDT documented in this encounter Results * Hm Colonoscopy (01/22/2024 12:00 PM EDT) us Historical Provider HEALTH MAINTENANCE Final Result documented in this encounter Visit Diagnoses Not on filedocumented in this encounter Additional Health Concerns Assessment Noted Time PHQ-9 Depression Total Score: 0 08/21/19 24 11:01 AM EST documented as of this encounter Care Teams Continuous Mining Operator Relationship Specialty Start Date End Date Adelina Moore MD [address] [place] [phone] PCP - General Family Medicine 09/14/18 documented as of this encounter
--- OUTSIDE RECORDS SUMMARY | 2025-04-25 08:19 | XMS_ITS | Encounter Summary ---
Author Organization [facility] Address [address] [place] [address] Phone Care Team Providers Care Rail Transportation Tabeler Name Role Phone Pcp, Unknown Primary Care Provider Unavailabl e Encounter Details Date Type Department Care Team (Late st Contact Info) Description 05/31/2020 Ancillary Orders [facility] [address] [facility] [address], [address] [place], [place] [phone] Rebekah De Luna MD [address] [place] [address] [email or web address] Social History Tobacco Use Types Packs/Day Years [...] on filedocumented in this encounter Care Teams Rail Transportation Tabeler Relationship Specialty Start Date End Date Pcp, Unknown PCP - General 05/29/20 documented as of this encounter Additional Source Comments The information contained in this document represents components of the legal health record. It is not the complete legal health record.[facility]
--- OUTSIDE RECORDS SUMMARY | 2025-04-25 08:19 | XMS_ITS | Encounter Summary ---
Author Organization [employer] Address [address] 7t [place] [address] Care Team Providers Care Diet Kitchen Cook Name Role Phone Adelina Moore MD Primary Care Provide r Encounter Details Date Type Department Care Team (Late st Contact Info) Description 12/23/2022 Abstract [facility] D[facility] [address] [place] [address] Jie, Maryan [address] [place] [address] Social History Tobacco Use Types Packs/Day Years [...] on filedocumented in this encounter Care Teams Diet Kitchen Cook Relationship Specialty Start Date End Date Adelina Moore MD [address] [place] [address] PCP - General Family Medicine 09/14/18 documented as of this encounter
--- OUTSIDE RECORDS SUMMARY | 2025-04-25 08:19 | XMS_ITS | Encounter Summary ---
Author Organization [employer] Address [address] [facility] [address] 7t [place] [address] Care Team Providers Care Professor Of Archaeology Name Role Phone Adelina Moore MD Primary Care Provide r Reason for Visit * Reason Onset Date Comments pain when eating 12/18/2023 Encounter Details Date Type Department Care Team (Late st Contact Info) Description 12/18/2023 Telephone [facility] AD[facility] D[facility] [address] [place] [address] Ashley Matos, DDS [address] [place] [address] pain when eating Social History Tobacco Use Types Packs/Day Years [...] your housing situation today? I have amado arizmendi 08/21/[address] you li [...] the past 12 months, has t he electric, gas, oil or water company threatened to [...] AM EDT documented as of this encounter Miscellaneous Notes * Telephone Encounter - Lena Haines - 12/18/2023 9:28 AM EDT Patient on waiting list since 08/2023 for cleaning and exam. Experiencing pain when eating and chipped tooth. Non emergency. If unable to schedule cleaning exam, patient would like this tooth to be checked out. Patient given instructions to call in if it turns into emergency with excessive pain and/or swelling DR documented in this encounter Plan of Treatment Not on file documented as of this encounter Visit Diagnoses Not on filedocumented in this encounter Additional Health Concerns Assessment Noted Time PHQ-9 Depression Total Score: 0 08/21/19 24 11:01 AM EST documented as of this encounter Care Teams Professor Of Archaeology Relationship Specialty Start Date End Date Adelina Moore MD [address] [place] [address] PCP - General Family Medicine 09/14/18 documented as of this encounter
--- OUTSIDE RECORDS SUMMARY | 2025-04-25 08:19 | XMS_ITS | Clinical Summary ---
Author Organization [facility] Address [address] [address] Phone Care Team Providers Care Workplace Trainer And Assessor Name Role Phone Pcp, Unknown Primary Care Provider Unavailabl e Social History Tobacco Use Types Packs/Day Years Used Date Smoking Tobacco: Never Assessed Education Answer Date Recorded Are you interested in more education? Not on maryellen e 11/21/2022 Are you concerned about learning? Not on file 11/21/2022 No 11/21/2022 No 11/21/2022 Digital Access Answer Date Recorded No 12/23/2022 No 12/23/2022 Reliable internet access at home? Not on file 12/23/2022 Device with a working camera? Not on file Comments Unknown Sex and Gender Information Value Date Recorded Sex Assigned at Not on file Legal Sex Female 8:22 AM EST Gender Identity Not on file Sexual Orientation Not on file Plan of Treatment Health Maintenance Due Date Last Done Comments Adult Td,Tdap Booster 1975 LIPID PANEL 1975 DEPRESSION SCREENING 1987 SMOKING Hx and SMOKELESS TOBACCO SCREENING 1988 HEPATITIS C SCREENING 1993 HIV ONE-TIME SCREENING (18-6 5 YEARS) 1993 PAP SMEAR 1996 MAMMOGRAM 2015 COLOGUARD 2020 COLONOSCOPY 2020 COLORECTAL CANCER SCREENING 2020 FIT TEST 2020 FOBT 2020 SIGMOIDOSCOPY 2020 VIRTUAL COLONOSCOPY 2020 INFLUENZA VACCINE (#1) 2025 0, 05/23/2019, 09/14/2018 COVID-19 VACCINE (2 - 2024-2 6 season) 2025 07/04/2021 PNEUMOCOCCAL VACCINES (50+ years) (1 of 1 - PCV) 2025 ZOSTER VACCINES (1 of 2) 2025 HEPATITIS A VACCINES Aged Out No long er eligible based on patient's age to complete this topic HIB VACCINES Aged Out No longer eligi ble based on patient's age to complete this topic MENINGOCOCCAL VACCINES (ACWY) Aged Out No longer eligible based on patient's age to complete this topic MENINGOCOCCAL VACCINES (B) Aged Out N o longer eligible based on patient's age to complete this topic Medical Devices Not on file Insurance [facility] NON NSPG PCP [employer] [facility] NON NSPG PCP [employer] [facility] NON NSPG PCP [employer] NON NSPG PCP S[facility] [employer] [facility] [place] [facility] NON NSPG PCP [employer] NON NSPG PCP [facility] NON NSPG PCP [facility] [facility] NON NSPG PCP [facility] [facility] [place] [phone] Care Teams Workplace Trainer And Assessor Relationship Specialty Start Date End Date Pcp, Unknown PCP - General 05/29/20 Additional Source Comments The information contained in this document represents components of the legal health record. It is not the complete legal health record.[facility]
--- OUTSIDE RECORDS SUMMARY | 2025-04-25 08:19 | XMS_ITS | Encounter Summary ---
Author Organization [employer] Address [address] [facility] [address] [place] [address] Care Team Providers Care Inside Outside Sales Representative Name Role Phone Adelina Moore MD Primary Care Provide r Encounter Details Date Type Department Care Team (Late st Contact Info) Description 09/01/2024 Orders Only [facility] [address] [place] [address] Orly Fregoso MD [address] [place] [address] Social History Tobacco Use Types Packs/Day Years [...] documented as of this encounter Care Teams Inside Outside Sales Representative Relationship Specialty Start Date End Date Adelina Moore MD [address] [place] [id number] PCP - General Family Medicine 09/14/18 documented as of this encounter
--- OUTSIDE RECORDS SUMMARY | 2025-04-25 08:19 | XMS_ITS | Encounter Summary ---
Author Organization [facility] Address [address] [facility] [address] [place] [phone] Phone Care Team Providers Care Miller Head Name Role Phone Pcp, Unknown Primary Care Provider Unavailabl e Encounter Details Date Type Department Care Team (Late st Contact Info) Description 05/31/2020 Ancillary Orders [facility] [address] [place] [address] [place] [address] Rebekah De Luna MD [address] [place] [phone] [email or web address] Palpitation Social History Tobacco Use Types Packs/Day Years Used Date Smoking Tobacco: Never Assessed Comments Unknown Sex and Gender Information Value Date Recorded Sex Assigned at Not on file Legal Sex Female 8:22 AM EST Gender Identity Not on file Sexual Orientation Not on file documented as of this encounter Plan of Treatment Not on file documented as of this encounter Results * Holter Monitor 48 Hours (05/31/2020 3:14 PM EST) Anatomical Region Laterality Modality Heart Other Narrative 05/31/2020 5:41 PM EST 48-hour monitor: 24 hours data recorded. The baseline rhythm is sinus with a minimum heart rate of 57, maximum 139, average 86 bpm. Rare PACs and 213 PVCs present. There is no diary submitted. There are patient event markers during sinus rhythm with single PVCs and during sinus rhythm without ectopy. Impression: 48-hour monitor contains only 24 hours of data. Patient event markers occur during sinus rhythm without PVCs and sinus rhythm with single PVCs. Procedure Note Hussein Dockery MD - 05/31/2020 48-hour monitor: 24 hours data recorded. The baseline rhythm is sinuswith a minimum heart rate of 57, maximum 139, average 86 bpm. Rare PACsand 213 PVCs present. There is no diary submitted. There are patientevent markers during sinus rhythm with single PVCs and during sinus rhythmwithout ectopy. Impression: 48-hour monitor contains only 24 hours of data. Patient eventmarkers occur during sinus rhythm without PVCs and sinus rhythm withsingle PVCs. Rebekah De Luna MD [facility] Final Result documented in this encounter Visit Diagnoses Diagnosis Palpitation Palpitations Palpitation Palpitations documented in this encounter Care Teams Miller Head Relationship Specialty Start Date End Date Pcp, Unknown PCP - General 05/29/20 documented as of this encounter Additional Source Comments The information contained in this document represents components of the legal health record. It is not the complete legal health record.[facility]
--- OUTSIDE RECORDS SUMMARY | 2025-04-25 08:20 | XMS_ITS | Clinical Summary ---
Author Organization [employer] Address [address] [place] [address] [address] [place] [address] Care Team Providers Care Beer Brewer Name Role Phone Adelina Moore MD Primary Care Provide r Allergies Active Allergy Reactions Criticality Noted Date Comments Metronidazole Rash Low 12/03/2022 Medications lamoTRIgine (LaMICtal) 100 MG tablet Take 1 tablet by mouth in the morning. 11/20/19 23 Active D3-1000 25 MCG (1000 UT) capsule TAKE 1 CAPSULE BY MOUTH EVERY DAY IN THE MORNING 90 capsule 1 12/23/19 24 Active LORazepam (Ativan) 2 MG tablet TAKE 1/2-1 TABLET BY MOUTH ONCE A DAY NEEDED FOR ANXIETY 02/29/20 24 Active buPROPion XL (Wellbutrin XL) 150 MG 24 hr tablet Take 1 tablet (150 mg) by mouth in the morning. 30 tablet 04/18/20 24 Active atomoxetine (Strattera) 80 MG capsule Take 1 capsule by mouth Once per day. 06/09/20 24 Active hydrOXYzine HCl (Atarax) 25 MG tablet Take 1 tablet by mouth Once per day. 07/29/19 25 Active lamoTRIgine (LaMICtal) 25 MG tablet TAKE 1 TABLET BY MOUTH ONCE A DAY FOR 14 DAYS THEN INCREASE TO 2 TABLETS DAILY 06/18/20 24 Active lidocaine (Lidoderm) 5 % patch Apply 1 patch topically Once per day. Remove & discard patch within 12 hours or as directed by MD. 30 patch 2 02/28/20 25 026 Active tiZANidine (Zanaflex) 2 MG tablet Take 1 tablet (2 mg) by mouth every 8 (eight) hours if needed for muscle spasms for up to 10 days. 30 tablet 1 02/28/20 25 Active acetaminophen (Tylenol) 500 MG tablet Take 2 tablets (1,000 mg) by mouth every 6 (six) hours if needed for moderate pain or fever for up to 25 doses. 50 tablet 02/28/20 25 Active levothyroxine (Synthroid, Levoxyl) 150 MCG tablet TAKE 1 TABLET (150 MCG) BY MOUTH BEFORE BREAKFAST. 90 tablet 1 03/01/20 25 026 Active estradiol (Estrace) 0.1 MG/GM vaginal creamIndicatio ns:Vaginal dryness 1g vaginally at bedtime x 14d, then twice weekly thereafter 45 g 2 04/05/20 25 Active estradiol (Estrace) 0.1 MG/GM vaginal cream 1g vaginally at bedtime x 14d, then twice weekly thereafter 45 g 2 07/31/19 24 025 Discontinued(Re order (will not trigger notification to Pharmacy)) Active Problems Problem Noted Date Diagnosed Date Vaginal dryness 04/05/2025 Assessment & Plan (04/05/2025 4:26 PM EDT): Estradiol vaginal cream prescribed today Right wrist pain 01/26/2025 Assessment & Plan (01/26/2025 4:40 PM EDT): Continue to use wrist brace Nerve conduction test ordered ADHD 01/26/2025 Assessment & Plan (01/26/2025 4:39 PM EDT): Continue to f/u with specialist Easy bruising 01/26/2025 Assessment & Plan (01/26/2025 4:38 PM EDT): Labs ordered Patient will be contacted with results Venous insufficiency 01/26/2025 Assessment & Plan (01/26/2025 4:40 PM EDT): I advise to use compression stockings 15-20mmhg 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 -Ibuprofen and muscle relaxer for pain. -PT referral done. -X-ray of the C-Spine. -Massage and home stretching discussed. -If no improvment Pt may need an ortho referral -Advised to let us know if symtpoms do not improve. Assessment & Plan (01/06/2023 10:17 AM EDT): Impingement of area possibility include C-spine, upper trapezius, lateral epicondyle, less likely carple tunnel. -Ibuprofen and muscle relaxer for pain. -PT referral done. -X-ray of the C-Spine. -Massage and home stretching discussed. -If no improvment Pt may need an ortho referral -Advised to let us know if symtpoms do not improve. Periodontal disease 12/03/2022 Dental calculus 12/03/2022 Hypothyroidism 10/29/2022 Assessment & Plan (04/05/2025 4:26 PM EDT): TSH is within normal limits continue with same levothyroxine dose Assessment & Plan (01/26/2025 4:39 PM EDT): Dose adjusted recently I will repeat her TSH today again Assessment & Plan (09/02/2024 12:29 PM EST): Symptomatic currently with excess fatigue, dry skin, constipation TSH 5.8, normal T4 Increase Synthroid from 137mcg to 150mcg daily Telephone result note sent to nurses to notify patient of new prescription Assessment & Plan (08/21/2023 11:55 AM EST): I will repeat her TSH in 3 months Resolved Problems Problem Noted Date Diagnosed Date Resolved Date Right elbow pain 08/21/2023 04/18/2024 Fatigue 10/29/2022 04/18/2024 Assessment & Plan (08/21/2023 11:56 AM EST): Likely multifactorial (menopause, hypothyroidism and depression) Labs nancy be recheck in few months Advise healthy diet hydration and exercise Palpitations 10/29/2022 04/18/2024 Unintentional weight loss 10/29/2022 Encounters Date Type Department Care Team Description 04/05/2025 3:00 PM EDT Telemedicine [facility] [address] [place] [phone] Adelina Moore MD Acquired hypothyroidism (Primary Dx); Vaginal dryness; Dietary counseling; Exercise counseling 04/05/2025 Travel 03/01/2025 Refill [facility] [address] [place] [phone] Orly Fregoso MD 02/27/2025 9:00 AM EDT Office Visit [facility] [address] [place] [phone] Endy Kruse MD Acute left-sided low back pain without sciatica (Primary Dx) 02/27/2025 Travel 01/26/2025 1:45 PM EDT Office Visit [facility] [address] [place] [phone] Adelina Moore MD Attention deficit hyperactivity disorder (ADHD), unspecified ADHD type (Primary Dx); Acquired hypothyroidism; Right wrist pain; Easy bruising; Venous insufficiency 01/26/2025 Travel 01/25/2025 Telephone [facility] [address] [place] [phone] Adelina Moore MD Chart Prep from Last 3 Months Immunizations Immunization Administration Dates Next Due INFLUENZA INJECTABLE QUADRIV ALANT CCIIV4 MDCK Multi-dose vial 05/23/2019 Influenza Injectable Quadriv alant Preservative Free IIV4 MDCK 04/06/2020 Influenza injectable quadrivalent preservative f ree 05/28/2023,09/14/2018 Family History Medical History Relation Name Comments Colon cancer Maternal Grandmother 70 Relation Name Status Comments Maternal Grandmother Social History Tobacco Use Types Packs/Day Years Used Date Smoking Tobacco: Former Cigarettes Passive Smoke Exposure: Never Smokeless Tobacco: Never Tobacco Cessation:Counseling Given: Not Answered Alcohol Use Standard Drinks/Week Comments Not Currently 0 (1 standard drink = 0.6 oz pur e alcohol) Depression Answer Date Recorded Patient Health Questionnaire-9 Score 0 01/26/2025 Patient Health Questionnaire-9 Score 0 01/26/2025 Last PHQ-9: Questionnaire Data Not on file 0 01/26/2025 Housing Stability Answer Date Recorded What is your housing situation today? I have amado arizmendi 01/26/[address] you li ve. Do you have problems with any of the following? None of the above 01/26/2025 Food Insecurity Answer Date Recorded Within the past 12 months, y ou worried that your food would run out before you got money to buy more: Never True 01/26/2025 Within the past 12 months,th e food you bought just didn't last and you didn't have enough money to get more: Never True 09/2024 Transportation Answer Date Recorded In the past 12 months, has l ack of transportation kept you from medical appts, meetings, work or from getting things needed for daily living? No 01/26/2025 Utilities Answer Date Recorded In the past 12 months, has t he electric, gas, oil or water company threatened to shut off services in your home? No 01/26/2025 Depression Answer Date Recorded Patient Health Questionnaire-2 Score 0 01/26/2025 Internet Access Answer Date Recorded Internet Access Q1 No 01/26/2025 Internet Access Q2 I do not want or need it 09/2024 Comments No Sex and Gender Information Value Date Recorded Sex Assigned at Female 05/26/2022 10:35 AM EDT Legal Sex Female 10:35 AM EDT Gender Identity Female 05/26/2022 10:35 AM EDT Sexual Orientation Choose not to disclose 2021 10:35 AM EDT Last Filed Vital Signs Vital Sign Reading Time Taken Comments Blood Pressure 123/83 02/27/2025 8:57 AM EDT Pulse 92 02/27/2025 8:57 AM EDT Temperature 36.7 C (98.1 F) 02/27/2025 8:57 AM EDT Respiratory Rate 16 02/27/2025 8:57 AM EDT Oxygen Saturation 99% 01/26/2025 1:37 PM EDT Inhaled Oxygen Concentration - - Weight 73.8 kg (162 lb 9.6 oz) 02/27/2025 8:57 A M EDT Height 162.6 cm (5' 4 ) 02/27/2025 8:57 AM EDT Body Mass Index 27.91 02/27/2025 8:57 AM EDT Plan of Treatment Health Maintenance Due Date Last Done Comments FIT DNA/Cologuard 1975 FIT 1975 FOBT 1975 Sigmoidoscopy 1975 Family Planning (PISQ) 1990 DTaP/Tdap/Td Vaccines (1 - Tdap) 1994 Hepatitis B Vaccines (1 of 3 - 19+ 3-dose series) 1994 Dental Oral Exam 07/13/2024 01/11/2024, 11/13/2022 Dental Prophylaxis 07/13/2024 01/11/2024, 12/03/2022 Mammogram 09/10/2024 09/10/2023, 11/25, 12/08/2019, Additional history exists Dental X-Ray: Bitewings 01/11/2025 01/11/2024, 11/13 COVID-19 Vaccine ( season) 2025 05/28/2023, 07/04/2021 Influenza Vaccine (#1) 2025 , 04/06/2020, 05/23/2019, Additional history exists Pneumococcal Vaccine: 50+ Years (1 of 1 - PCV) 2025 Zoster Vaccines (1 of 2) 2025 Cervical Cancer Screening 10/18/2025 HPV/Cotest 10/18/2025 10/18/2020 Pap Smear 10/18/2025 10/18/2020 Dental X-Ray: Full Mouth 11/14/2025 11/13/2022 Alcohol/Substance Use Screening 01/26/2026 01/26/2025 Depression Screening 01/26/2026 01/26/2025, 01/27/20 Disability Screening 01/26/2026 01/26/2025 SDOH Screening 01/26/2026 01/26/2025 Tobacco Screening 02/27/2026 02/27/2025 CT Colonography 01/21/2029 01/22/2024 Colonoscopy 01/21/2029 01/22/2024 Colorectal Cancer Screening 01/21/2029 RSV Patients and Patients Aged 60 years or older (1 - 1-dose 75+ series) 2050 Hepatitis C Screening Completed 05/29/2021, 021 HIV Screening Completed 10/29/2022, 09/2020, 09/12/2020 HIB Vaccines Aged Out No longer eligi ble based on patient's age to complete this topic HPV Vaccines Aged Out No longer eligi ble based on patient's age to complete this topic Hepatitis A Vaccines Aged Out No long er eligible based on patient's age to complete this topic IPV Vaccines Aged Out No longer eligi ble based on patient's age to complete this topic Meningococcal B Vaccine Aged Out No l onger eligible based on patient's age to complete this topic Meningococcal Vaccine Aged Out No akhil johny eligible based on patient's age to complete this topic RSV under 20 months Aged Out No longe r eligible based on patient's age to complete this topic Rotavirus Vaccines Aged Out No longer eligible based on patient's age to complete this topic Procedures Procedure Name Priority Date/Time Associated Diagnosis Comments XR LUMBAR SPINE 2-3 VIEWS Routine 02/27/2025 9:35 AM EDT Acute left-sided low back pain without sciatica COMPREHENSIVE METABOLIC PANEL Routine 01/30/2025 7:29 AM EDT Easy bruising LIPID PANEL, STANDARD Routine 01/30/2025 7:29 AM EDT Easy bruising CBC WITH AUTO DIFFERENTIAL Routine 01/30/2025 7:29 AM EDT Easy bruising JOSE ELIAS SCREEN, IFA, W/REFL TITER AND PATTERN Routine 01/30/2025 7:29 AM EDT Easy bruising APTT Routine 01/30/2025 7:29 AM EDT Easy bruising PROTHROMBIN TIME-INR Routine 01/30/2025 7:29 AM EDT Easy bruising TSH W/REFLEX TO FT4 Routine 01/30/2025 7 :29 AM EDT Acquired hypothyroidism CT COLONOGRAPHY SCREENING Routine 01/22/2024 2:30 PM EDT HM COLONOSCOPY Routine 01/22/2024 12:00 PM EDT Full PROPHYLAXIS - ADULT Routine 01/11/2024 8:00 AM EDT Dental plaque BITEWINGS - 4 RADIOGRAPHIC IMAGES Routine 01/11/2024 8:00 AM EDT Localized gingival recession Dental plaque PERIODIC ORAL EVALUATION - ESTABLISHED PATIENT Routine 01/11/2024 8:00 AM EDT BI MAMMOGRAM SCREENING TOMOSYNTHESIS BILATERAL Routine 09/10/2023 2:14 PM EST Breast cancer screening by mammogram INTRAORAL - COMPLETE SERIES OF RADIOGRAPHIC IMAGES Routine 11/13/2022 3:00 PM EDT Dental caries Encounter for dental examination Dental root implant present HIV 1/2 ANTIGEN/ANTIBODY, FOURTH GENERATION W/RFL Routine 10/29/2022 9:46 AM EDT Other fatigue ZZZ HISTORICAL HEPATITIS C AB W/REFL TO HCV RNA, QN, PCR Routine 05/29/2021 4:01 PM EDT HPV GENOTYPES 16,18/45 Routine 10/18/2020 12:00 AM EDT THINPREP PAP Routine 10/18/2020 12:00 AM EDT from Last 3 Months or Most Recently Relevant to Health Maintenance Results * XR Lumbar Spine 2-3 Views (02/27/2025 9:35 AM EDT) Anatomical Region Laterality Modality Spine, L-spine Radiographic Yuki ging 02/27/2025 9:35 AM EDT Narrative 02/27/2025 10:10 AM EDT [address] [address] XRay Report Signed Patient: Casey Fitzgerald MR#: [id number] : 1975 Acct:[id number] Age/Sex: 49 / F ADM Date: 02/27/25 [facility]: Endy Kruse MD Ordering Physician: ENDY KRUSE MD Date of Service: 02/27/25 Procedure(s): XR lumbar spine 2-3V Accession Number(s): [id number] cc: ENDY KRUSE MD EXAMINATION: XR LUMBOSACRAL SPINE CLINICAL INFORMATION: left low back pain COMPARISON: 01/16/2021. TECHNIQUE: Three views of the lumbosacral spine. FINDINGS: There is no scoliosis. There is normal lumbar lordosis. There is no subluxation. There is no compression deformity, fracture, or suspicious bone lesion. There is normal facet alignment. No significant facet arthropathy. Disc spaces demonstrate minimal disc degeneration at L2-3 and L5-S1. Remainder of the disc spaces are preserved. SI joints and sacrum appear normal. No soft tissue abnormalities. XR/XR lumbar spine 2-3V IMPRESSION: 1. No acute bony abnormalities of the lumbar spine. 2. Minimal disc degeneration at L2-3 and L5-S1. Electronically signed by: Hussein Mcnair MD 02/27/2025 10:08 AM EDT Dictated By: Hussein Mcnair MD Signed By: <Electronically signed by Hussein Mcnair MD in OV> 02/27/25 1008 DD/ 0935 TD/TT: 02/27/25 0940 Recruitment Coordinator: Procedure Note Donotuseinterpreter, Image - 02/27/[address] [address] XRay Report Signed Patient: Mami FitzgeraldR#: Marge [id number] : 1975Acct:[id number] Age/Sex: 49 / FADM Date: 02/27/25 Loc: [facility] Attending Dr: Endy Kruse MD Ordering Physician: ENDY KRUSE MD Date of Service: 02/27/25 Procedure(s): XR lumbar spine 2-3V Accession Number(s): [id number] cc: ENDY KRUSE MD EXAMINATION: XR LUMBOSACRAL SPINE CLINICAL INFORMATION: left low back pain COMPARISON: 01/16/2021. TECHNIQUE: Three views of the lumbosacral spine. FINDINGS: There is no scoliosis. There is normal lumbar lordosis. There is no subluxation. There is no compression deformity, fracture, or suspicious bone lesion. There is normal facet alignment. No significant facet arthropathy. Disc spaces demonstrate minimal disc degeneration at L2-3 and L5-S1. Remainder of the disc spaces are preserved. SI joints and sacrum appear normal. No soft tissue abnormalities. XR/XR lumbar spine 2-3V IMPRESSION: 1. No acute bony abnormalities of the lumbar spine. 2. Minimal disc degeneration at L2-3 and L5-S1. Electronically signed by: Hussein Mcnair MD 02/27/2025 10:08 AM EDT RP Dictated By: Hussein Mcnair MD Signed By: <Electronically signed by Hussein Mcnair MD in OV> 02/27/25 1008 DD/ 0935 TD/TT: 02/27/25 0940 Recruitment Coordinator: us Endy Kruse MD IMG XR PROCEDURES Final Result * TSH W/Reflex to FT4 (01/30/2025 7:29 AM EDT) TSH reflex Free T4 1.41 0.32 - 4.0 uIU/mL [facility] Blood Venous blood specimen / Unknown 01/30/2025 7:29 AM EDT 01/30/2025 7:29 AM EDT us Adelina Jeffrey MD LAB BLOOD ORDERABLES Final Result [facility] [address] [place] [phone] * CBC auto differential (01/30/2025 7:29 AM EDT) White Blood Count 5.6 4.8 - 10.8 X10*3/uL [facility] Red Blood Count 4.79 4.20 - 5.50 X10*6/uL [facility] Hemoglobin 14.3 12.0 - 16.0 g/dl [facility] Hematocrit 43.8 37.0 - 47.0 % [facility] Mean Corpuscular Volume 91.4 80.0 - 98.0 fL [facility] Mean Corpuscular Hemoglobin 29.9 27.0 - 33.0 pg [facility] Mean Corpuscular HGB Conc 32.6 31.0 - 35.0 g/dl [facility] Red Cell Distribution Width 13.6 11.0 - 16.0 % [facility] Platelet Count 229 160 - 400 X10*3/uL [facility] Mean Platelet Volume 9.7 9.4 - 12.3 fL [facility] Neutrophils Percent Auto 48.9 45 - 73 % [facility] Imm Gran Pct Auto 0.4 0.0 - 0.4 % [facility] Lymphocytes Percent Auto 35.4 20 - 40 % [facility] Monocytes Percent Auto 10.4 2 - 11 % [facility] Eosinophils Percent Auto 3.6 0 - 4 % [facility] Basophils Percent Auto 1.3 0 - 2 % [facility] NRBC Pct Auto 0.0 0.0 - 0.2 /100WBC [facility] Neutrophils Absolute Auto 2.7 2.0 - 8.3 x10*3/uL [facility] Imm Gran Abs Auto 0.02 0.00 - 0.03 X10*3/uL [facility] Lymphocytes Absolute Auto 2.0 1.2 - 4.9 X10*3/uL [facility] Monocytes Absolute Auto 0.6 0.1 - 1.2 X10*3/uL [facility] Eosinophils Absolute Auto 0.2 0.0 - 0.4 X10*3/uL [facility] Basophils Absolute Auto 0.1 0.0 - 0.2 X10*3/uL [facility] NRBC Abs Auto 0.000 0.0 - 0.012 X10*3/uL [facility] Blood Venous blood specimen / Unknown 01/30/2025 7:29 AM EDT 01/30/2025 7:29 AM EDT Adelina Jeffrey MD LAB BLOOD ORDERABLES Final Result Performing Organization Address [facility] Co de Phone Number [facility] [address] [place] [phone] * Partial Thromboplastin Time, Activated (APTT) (01/30/2025 7:29 AM EDT) Partial Thromboplastin Time 32.5 26.0 - 36.8 SEC [facility] Comment:For information rega rding the monitoring of direct thrombininhibitors, please refer to Pharmacy. Blood Venous blood specimen / Unknown 01/30/2025 7:29 AM EDT 01/30/2025 7:29 AM EDT Adelina Jeffrey MD LAB BLOOD ORDERABLES Final Result Performing Organization Address [facility] Co de Phone Number [facility] [address] [place] [phone] * (ABNORMAL) Prothrombin Time-INR (01/30/2025 7:29 AM EDT) Prothrombin Time 10.6(L) 10.9 - 12.4 SEC [facility] INTERNATIONAL NORM RATIO 0.9 0.9 - 1.1 [facility] Comment:INTERNATIONAL NORMAL IZED RATIO (INR) REFERENCE RANGES Reference RangeFor patients not on anticoagulant therapy: 0.9 - 1.1INR ranges for oral anticoagulanttherapy:For prevention and treatment of venous thrombosis and pulmonary embolism: 2.0 - 3.0For acute myocardial infarction with aspirin therapy: 2.0 - 3.0For acute myocardial infarction without aspirin therapy: 3.0 - 4.0For patients with mechanical prosthetic heart valves: 2.5 - 3.5 Blood Venous blood specimen / Unknown 01/30/2025 7:29 AM EDT 01/30/2025 7:29 AM EDT us Adelina Jeffrey MD LAB BLOOD ORDERABLES Final Result Performing Organization Address [facility]/ZIP Co de Phone Number [facility] [address] [place] [phone] * JOSE ELIAS Screen,IFA, with Reflex to Titer and Pattern (01/30/2025 7:29 AM EDT) Anti Nuclear Antibody Screen NEGATIVE NEGATIVE [facility] Comment:JOSE ELIAS IFA is a first l ine screen for detecting thepresence of up to approximately 150 autoantibodies invarious autoimmune diseases. A negative JOSE ELIAS IFA resultsuggests an JOSE ELIAS-associated autoimmune disease is notpresent at this time, but is not definitive. If thereis high clinical suspicion for Sjogren's syndrome,testing for anti-SS-A/Ro antibody should be considered.Anti-Nery-1 antibody should be considered for clinicallysuspected inflammatory myopathies.AC-0: NegativeInternational Consensus on JOSE ELIAS Patterns(https://doi.org/10.1515/smqg-3959-9839)For additional information, please refer tohttp://education.Serus/faq/HIY936(This link is being provided for informational/educational purposes only.)THIS TEST WAS PERFORMED AT:[employer] [place] [phone] OROPEZA MD JOSE ELIAS Titer TNP [facility] JOSE ELIAS TITER 2 (REF LAB) [facility] EL[facility]AS [facility] 2 [facility] JOSE ELIAS TITER 3 [facility] JOSE ELIAS PATTERN 3 [facility] Blood Venous blood specimen / Unknown 01/30/2025 7:29 AM EDT 01/30/2025 7:29 AM EDT us Adelina Jeffrey MD LAB BLOOD ORDERABLES Final Result Performing Organization Address City/[facility]/ZIP Co de Phone Number [facility] [address] [place] [phone] * (ABNORMAL) Lipid Panel, Standard (01/30/2025 7:29 AM EDT) Triglycerides 53 <150 mg/dL [facility] Comment:Desirable Triglyceri de: less than 150 mg/dLBorderline High Triglyceride 150-199 mg/dLHigh Triglyceride: 200-499 mg/dLVery High Triglyceride: greater than or equal to 5OO mg/dL Cholesterol 184 <200 mg/dL [facility] Comment:Desirable Cholestero l: less than 200 mg/dLBorderline High Cholesterol: 200-239 mg/dLHigh Cholesterol: greater than 239 mg/dL LDL Cholesterol Calculated 119(H) <100 mg/dL [facility] Comment:Desirable LDL: less than 100 mg/dLNear Optimal/Above Optimal LDL: 110- 129 mg/dLBorderline High LDL: 130-159 mg/dLHigh LDL: 160-189 mg/dLVery High LDL: greater than or equal to 190 mg/dL HDL Cholesterol 55 >40 mg/dL [facility] Comment:Desirable HDL: great er than 40 mg/dL Note: This HDL assay may give artificially low results in patients with liver disease. Blood Venous blood specimen / Unknown 01/30/2025 7:29 AM EDT 01/30/2025 7:29 AM EDT us Adelina Jeffrey MD LAB BLOOD ORDERABLES Final Result [facility] [address] [place] [phone] * (ABNORMAL) Comprehensive Metabolic Panel (01/30/2025 7:29 AM EDT) Pathologist [facility] Sodium 140 135 - 145 mmol/L [facility] Potassium 4.3 3.3 - 5.1 mmol/L [facility] Chloride 106 96 - 108 mmol/L [facility] Carbon Dioxide 27 22 - 29 mmol/L [facility] Anion Gap 11(L) 12 - 20 [facility] Urea Nitrogen (BUN) 12 9 - 16 mg/dL [facility] Creatinine, Serum 1.00 0.5 - 1.4 mg/dL [facility] Estimated Glomerular Filt Rate 59 [facility] Comment:Chronic Kidney Disea se: Estimated GFR < 60 mL/min/1.55f6Cbqjpi Kidney Disease: Estimated GFR < 15 mL/min/1.73m2 Glucose 87 60 - 115 mg/dL [facility] Calcium 9.0 8.4 - 10.2 mg/dL [facility] Bilirubin, Total 0.4 0.0 - 1.0 mg/dL [facility] Aspartate Amino Transferase 19 5 - 31 U/L [facility] Alanine Aminotransferase 18 0 - 31 U/L [facility] Total Protein 7.0 6.5 - 8.0 g/dL [facility] Albumin Level 4.5 3.5 - 5.0 g/dL [facility] Alkaline Phosphatase 59 39 - 117 U/L [facility] Blood Venous blood specimen / Unknown 01/30/2025 7:29 AM EDT 01/30/2025 7:29 AM EDT Adelina Jeffrey MD LAB BLOOD ORDERABLES Final Result Performing Organization Address City/State/[facility] Co de Phone Number [facility] [address] [place] [phone] * CT colonography screening (01/22/2024 2:30 PM EDT) Anatomical Region Laterality Modality Colon Computed Tomogra phy 01/22/2024 2:30 PM EDT Narrative 01/27/2024 7:20 AM EDT [address] [address] [address] Scan Report Signed Patient: Casey Fitzgerald MR#: [id number] : 1975 Acct:[id number] Age/Sex: 48 / F ADM Date: 01/22/24 Loc: HO.[facility] Attending Dr: Mishel Wallace MD Ordering Physician: Mishel Wallace MD Date of Service: 01/22/24 Procedure(s): CT colonography Accession Number(s): [id number] cc: Adelina Moore MD; Mishel Wallace MD EXAMINATION: CT COLONOGRAPHY CLINICAL INFORMATION: Incomplete colonoscopy. COMPARISON: None available. TECHNIQUE: Bowel preparation: Suboptimal. Significant retained material limits the study. Stool tagging with Gastrografin and barium: Not utilized. Colonic distention: CO2 mechanical insufflator used via enema tube with incomplete distention. Acquisition: Low dose imaging targeted to colonic was performed in the supine and prone positions. Procedure: No immediate complication reported. Review: The acquired images were reviewed in axial, coronal and sagittal planes. Additional 3-D fly through images were reviewed at an independent workstation. This CT examination was performed using dose optimization techniques as appropriate, variously including the following: *Automated exposure control *Adjustment of mA and/or kV according to patient size (this includes techniques or standardized protocols for targeted exams where dose is matched to indication/reason for exam; i.e. extremities or head) *Use of iterative reconstruction technique DLP: 485 mGy-cm FINDINGS: Colonic findings: The study is severely limited. The colon is not well distended. Retained material limits assessment. Small or moderate-sized abnormalities would not be detectable No large colonic mass demonstrated Non-colonic findings: No suspicious noncolonic findings demonstrated. There are some linear and reticular opacities in the lower chest on each side which are likely postinflammatory CT/CT colonography IMPRESSION: Essentially nondiagnostic examination due to incomplete distention and retained material. Small or moderate-sized abnormalities would not be detectable. No large colonic mass. Dictated By: Jeison Kinney MD Signed By: <Electronically signed by Jeison Kinney MD in OV> 01/27/24 0715 DD/ 1430 TD/TT: Recruitment Coordinator: CATHI Procedure Note Donotuseinterpreter, Image - 02/04/[address] [address] [address] Scan Report Signed Patient: Mechelle Fitzgerald#: M [id number] : 1975Acct:[id number] Age/Sex: 48 / FADM Date: 01/22/24 Loc: HO.[facility] Attending Dr: Mishel Wallace MD Ordering Physician: Mishel Wallace MD Date of Service: 01/22/24 Procedure(s): CT colonography Accession Number(s): [id number] cc: Adelina Moore MD; Mishel Wallace MD EXAMINATION: CT COLONOGRAPHY CLINICAL INFORMATION: Incomplete colonoscopy. COMPARISON: None available. TECHNIQUE: Bowel preparation: Suboptimal. Significant retained material limits the study. Stool tagging with Gastrografin and barium: Not utilized. Colonic distention: CO2 mechanical insufflator used via enema tube with incomplete distention. Acquisition: Low dose imaging targeted to colonic was performed in the supine and prone positions. Procedure: No immediate complication reported. Review: The acquired images were reviewed in axial, coronal and sagittal planes. Additional 3-D fly through images were reviewed at an independent workstation. This CT examination was performed using dose optimization techniques as appropriate, variously including the following: *Automated exposure control *Adjustment of mA and/or kV according to patient size (this includes techniques or standardized protocols for targeted exams where dose is matched to indication/reason for exam; i.e. extremities or head) *Use of iterative reconstruction technique DLP: 485 mGy-cm FINDINGS: Colonic findings: The study is severely limited. The colon is not well distended. Retained material limits assessment. Small or moderate-sized abnormalities would not be detectable No large colonic mass demonstrated Non-colonic findings: No suspicious noncolonic findings demonstrated. There are some linear and reticular opacities in the lower chest on each side which are likely postinflammatory CT/CT colonography IMPRESSION: Essentially nondiagnostic examination due to incomplete distention and retained material. Small or moderate-sized abnormalities would not be detectable. No large colonic mass. Dictated By: Jeison Kinney MD Signed By: <Electronically signed by Jeison Kinney MD in OV> 01/27/24 0715 DD/ 1430 TD/TT: Recruitment Coordinator: CATHI [facility] External Provider IM CT PROCEDURES Final Result * Hm Colonoscopy (01/22/2024 12:00 PM EDT) us Historical Provider HEALTH MAINTENANCE Final Result * BI Mammogram Screening Tomosynthesis Bilateral (09/10/2023 2:14 PM EST) Anatomical Region Laterality Modality Breast Bilateral Mammography 09/10/2023 2:14 PM EST Narrative 10/06/2023 11:54 AM EDT [address] [place] [address] Mammography Report Signed Patient: Casey Fitzgerald MR#: M [id number] : 1975 Acct:[id number] Age/Sex: 48 / F ADM Date: 09/10/23 Loc: [facility] Attending Dr: Ranjith Spencer CNM Ordering Physician: RANJITH SPENCER CNM Results: 1 Negative Date of Service: 09/10/23 Follow Up: 1 Year From Orig ina Mammogram Procedure(s): MM tomosynthesis screening BI Accession Number(s): [id number] cc: Adelina Moore MD; RANJITH SPENCER CNM EXAMINATION: MM SCREENING DIGITAL BREAST TOMOSYNTHESIS, BILATERAL CLINICAL INFORMATION: Screening. Asymptomatic. COMPARISON: Mammography: This study is compared with prior exams dating back to 2019. TECHNIQUE: Digital breast tomosynthesis is performed in both the craniocaudal and mediolateral oblique views along with computer-aided detection (CAD). Synthesized 2D images are generated from the tomosynthesis. FINDINGS: There are scattered areas of fibroglandular density (ACR BI-RADS breast composition Category b). There are no significant masses, abnormal calcifications, or other abnormalities. MM/MM tomosynthesis screening BI IMPRESSION: No mammographic evidence of malignancy. ASSESSMENT: BI-RADS BI-RADS 1 - Negative RECOMMENDATION: Routine annual mammography screening. 1 year F/U This examination should not preclude the clinical evaluation of a suspicious palpable abnormality. This patient's information was entered into a reminder system with a target due date for their next mammogram. Dictated By: Delores Cruz MD Signed By: <Electronically signed by Delores Cruz MD in OV> 10/06/23 1150 DD/ 1414 TD/TT: Recruitment Coordinator: Procedure Note Donotuseinterpreter, Image - 10/06/2023 [facility] [address] [place] [address] Mammography Report Signed Patient: Mechelle Fitzgerald#: M [id number] : 1975Acct:[id number] Age/Sex: 48 / FADM Date: 09/10/23 Loc: HO.MAMMO Attending Dr: Ranjith Spencer CNM Ordering Physician: RANJITH SPENCEResults: 1 Negative Date of Service: 09/10/23Follow Up: 1 Year From Orig inal Mammogram Procedure(s): MM tomosynthesis screening BI Accession Number(s): [id number] cc: Adelina Moore MD; RANJITH SPENCER CNM EXAMINATION: MM SCREENING DIGITAL BREAST TOMOSYNTHESIS, BILATERAL CLINICAL INFORMATION: Screening. Asymptomatic. COMPARISON: Mammography: This study is compared with prior exams dating back to 2019. TECHNIQUE: Digital breast tomosynthesis is performed in both the craniocaudal and mediolateral oblique views along with computer-aided detection (CAD). Synthesized 2D images are generated from the tomosynthesis. FINDINGS: There are scattered areas of fibroglandular density (ACR BI-RADS breast composition Category b). There are no significant masses, abnormal calcifications, or other abnormalities. MM/MM tomosynthesis screening BI IMPRESSION: No mammographic evidence of malignancy. ASSESSMENT: BI-RADS BI-RADS 1 - Negative RECOMMENDATION: Routine annual mammography screening. 1 year F/U This examination should not preclude the clinical evaluation of a suspicious palpable abnormality. This patient's information was entered into a reminder system with a target due date for their next mammogram. Dictated By: Delores Cruz MD Signed By: <Electronically signed by Delores Cruz MD in OV> 10/06/23 1150 DD/ 1414 TD/TT: Recruitment Coordinator: Ranjith Spencer CNM IMG BI PROCEDURES Final R esult * HIV-1/2 Antigen and Antibodies, Fourth Generation, with Reflexes (10/29/2022 9:46 AM EDT) Pathologist [facility] HIV Antigen/Antibody, 4th Generation NON-REAC TIVE NON-REAC TIVE [employer] [place] [employer] [facility] Comment: HIV-1 antigen and HIV-1/HIV-2 antibodies were not detected. There is no laboratory evidence of HIV infection. PLEASE NOTE: This information has been disclosed to you from records whose confidentiality may be protected by state law. If your state requires such protection, then the state law prohibits you from making any further disclosure of the information without the specific written consent of the person to whom it pertains, or as otherwise permitted by law. A general authorization for the release of medical or other information is NOT sufficient for this purpose. For additional information please refer to http://education.Studio SBV/faq/DHR227 (This link is being provided for informational/ educational purposes only.) The performance of this assay has not been clinically validated in patients less than 2 years old. Blood Venous blood specimen / Unknown 10/29/2022 9:46 AM EDT 10/29/2022 9:46 AM EDT Narrative [facility] - 10/30/2022 2:40 PM EDT FASTING:NO FASTING: NO us Gayatri Bauer [facility] LAB BLOOD ORDERABLES Final Res ult [facility] [address], [place] [address] [employer] [facility] [address] [place] [address] * HEPATITIS C AB W/REFL TO HCV RNA, QN, PCR (05/29/2021 4:01 PM EDT) Pathologist [facility] HEPATITIS C ANTIBODY NON-REACT OLLIE NON-REACT OLLIE [facility] INDEX 0.01 <1.00 [facility] Comment: HCV antibody was non-reactive. There is no laboratory evidence of HCV infection. In most cases, no further action is required. However, if recent HCV exposure is suspected, a test for HCV RNA (test code 90837) is suggested. For additional information please refer to http://education.sunne.ws.Inventalator/faq/WUB54g6 (This link is being provided for informational/ educational purposes only.) 05/29/2021 4:01 PM EDT Adelina Jeffrey MD HISTORICAL/NON ORDERA BLE LABS Final Result Performing Organization Address [facility] de Phone Number [facility] [address] [place] [address], * THINPREP PAP (10/18/2020 12:00 AM EDT) Clinical Information: None given [facility] COMMENT SEE COMMENT [facility] Comment: EXPLANATORY NOTE: The Pap is a screening test for cervical cancer. It is not a diagnostic test and is subject to false negative and false positive results. It is most reliable when a satisfactory sample, regularly obtained, is submitted with relevant clinical findings and history, and when the Pap result is evaluated along with historic and current clinical information. Receiver Dispatcher : SEE COMMENT [facility] Comment: JXM, CT(ASCP) CT screening location: [place] [address] Interpretation/R esult: Negative for intraepithelial lesion or malignancy. [facility] LMP: NONE GIVEN [facility] Prev. BX: NONE GIVEN [facility] Prev. PAP: NONE GIVEN [facility] SOURCE: None given [facility] Statement Of Adequacy: SEE COMMENT [facility] Comment: Satisfactory for evaluation. Endocervical/transformation zone component present. Age and/or menstrual status not provided 10/18/2020 us Adelina Jeffrey MD LAB PATHOLOGY ORDERAB LES Final Result Performing Organization Address [facility] Co de Phone Number [facility] [address] [place] [address], * HPV GENOTYPES 16,18/45 (10/18/2020 12:00 AM EDT) HPV 16 RNA NOT DETECTED NOT DETECTED [facility] HPV 18/45 RNA NOT DETECTED NOT DETECTED [facility] Comment: Methodology: Hand Developer Mediated Amplification The analytical performance characteristics of this assay have been determined by [employer]. The modifications have not been cleared or approved by the FDA. This assay has been validated pursuant to the CLIA regulations and is used for clinical purposes. 10/18/2020 Adelina Jeffrey MD LAB CYTOLOGY ORDERABL ES Final Result [facility] [address] [place] [address], from Last 3 Months or Most Recently Relevant to Health Maintenance Insurance [employer] MEDICAID STAND ADULT Care Teams Beer Brewer Relationship Specialty Start Date End Date Adelina Moore MD [address] [place] [phone] PCP - General Family Medicine 09/14/18
--- OUTSIDE RECORDS SUMMARY | 2025-04-25 08:20 | XMS_ITS | Encounter Summary ---
Author Organization [employer] Address [address] [place] [address] [address] [place] [address] Care Team Providers Care Quill Cleaning Machine Operator Name Role Phone Adelina Moore MD Primary Care Provide r Encounter Details Date Type Department Care Team (Late st Contact Info) Description 01/14/2023 Orders Only [facility] MEDICINE [address] [place] [address] Cristal Plata MD [address] [place] [address] Radiculopathy of arm (Primary Dx) Social History Tobacco Use Types [...] suspected to have Coronavirus/COVID-19? No / Unsure 01/06/2023 8:33 AM EDT documented as of this encounter Plan of Treatment Not on file documented as of this encounter Visit Diagnoses Diagnosis Radiculopathy of arm- Primary Brachial neuritis or radiculitis nos documented in this encounter Care Teams Quill Cleaning Machine Operator Relationship Specialty Start Date End Date Adelina Moore MD [address] [place] [phone] PCP - General Family Medicine 09/14/18 documented as of this encounter
== END 2025-04-25 08:03 | disposition home or self-care (01) ==
LOC: HO.NEURO 08:02
PROVIDERS: Visit Provider Internal Medicine
DX: G56.11 Other lesions of median nerve, right upper limb (principal); G56.21 Lesion of ulnar nerve, right upper limb; M25.531 Pain in right wrist
CPT/HCPCS: 95886; 95910

== ENCOUNTER → 2025-04-25 08:13 | Outpatient (BNV) | payer MEDICAID, SELFPAY | PROVIDERS: Visit Provider Psychiatry & Neurology Neurology | DX: M25.531 Pain in right wrist (principal) | CPT/HCPCS: 95886; 95909 ==

== ENCOUNTER 2025-06-21 09:33 | Emergency (ER) | payer MEDICAID, SELFPAY ==
--- NOTE | ~2025-06-21 | XR_ITS ---
EXAMINATION: XR KNEE, LEFT CLINICAL INFORMATION: pain COMPARISON: 02/13/2021. TECHNIQUE: Four views of the left knee. FINDINGS: There is normal bone mineralization. There is no definite fracture, dislocation, or suspicious bone lesion. There is normal alignment. Joint spaces are grossly preserved. Minimal osteoarthrosis of the patellofemoral joint present. Mild spurring of the tibial spines evident. There is a large suprapatellar joint effusion. There is no discrete soft tissue abnormality. XR/XR knee LT 4V IMPRESSION: 1. No definite acute fracture or dislocation. 2. Large suprapatellar joint effusion. Electronically signed by: Hussein Mcnair MD 06/21/2025 10:46 AM NEO
[2025-06-21 09:38] VITALS: BP 136/68; PULSE 100; RESP 16; TEMP 36.6; O2SAT 98; BMI 29.2
--- NOTE | 2025-06-21 09:43 | ED.LOWEXIN ---
HPI - Extremity Injury (Lower) General Chief Complaint: Extremity Injury, Lower Stated Complaint: Injury Time Seen by Provider: 06/21/25 09:42 Source: patient and RN notes reviewed Mode of arrival: ambulatory Limitations: no limitations History of Present Illness ED Provider: Sri Hawk PA-C HPI Narrative: This is a 50-year-old female, with a hx of thyroidectomy on levothyroxine, who presents emergency department with concerns of left knee pain. Patient states that while she was standing on a stool reaching for something she she lost her balance causing her to fall. She states she is unsure if she twisted or landed directly onto her knee however immediately had pain in her knee. She was on the ground for about a 1/2 hour prior to her being able to get back up. She has been able to partially bear weight on her left knee. She took Tylenol yesterday which provided her with some relief. She denies hitting her head or LOC. She is not on anticoagulation. No other complaints or concerns at this time. MD complaint: knee injury Onset (ago): day(s) Place: home Severity: mild Relieving factors: immobilization and rest Exacerbating factors: weight bearing, movement and palpation Context: fall Associated symptoms: snap/pop sensation and swelling Other symptoms: none Related Data Home Medications ?Medication ?Instructions ?Recorded ?Confirmed bupropion HCl 300 mg 24 hr tablet, 300 mg PO QAM 02/20/21 01/20/24 extended release lamotrigine 100 mg tablet 100 mg PO DAILY 02/20/21 01/20/24 (Lamictal) levothyroxine 175 mcg capsule 175 mcg PO DAILY 02/20/21 01/20/24 Previous Rx's ?Medication ?Instructions ?Recorded amoxicillin 500 mg capsule 500 mg PO Q12H #20 caps 12/19/24 acetaminophen 500 mg tablet 1,000 mg (2 x 500 mg) PO Q6H PRN 06/21/25 (Tylenol Extra Strength) pain #30 tabs ibuprofen 600 mg tablet 600 mg PO Q6H PRN pain #30 tabs 06/21/25 Allergies Allergy/AdvReac Type Severity Reaction Status Date / Time metronidazole Allergy Mild Itching Verified 06/21/25 09:40 Review of Systems Review of Systems: Constitutional : No Fever, No Chills ENT/Mouth : No sore throat, No Rhinorrhea Eyes: No Eye Pain, No Swelling, No Redness Cardiovascular : No Chest Pain, No SOB Respiratory : No Cough, No Sputum Gastrointestinal : No Nausea, No Vomiting, No Diarrhea, No abdominal Pain Genitourinary : No Dysuria, No Hematuria Musculoskeletal : + joint pain, No Myalgias, + Joint Swelling Skin : No Skin Lesions Neuro : No Weakness, No Numbness, No Headache All other systems reviewed and are negative Yes all other systems are reviewed and are negative Constitutional: Constitutional: Reports as per [facility] Past Medical History Medical History (Updated 06/21/25 @ 10:53 by ODESSA Peter) Hemorrhoids Hypothyroid Surgical History Previous section History of appendectomy H/O thyroidectomy Social History Social History (Updated 03/05/22 @ 14:45 by Esther Davila PA-C) Household Members Other:: 2 kids Patient Tobacco Use Status: Current everyday Tobacco user Tobacco use type: Cigarette Cigarettes Per Day: 5 Advance Directives: No Advance Directives Information Provided: No Do you have a plan to hurt others: No Plan Current occupational status: employed Current occupation: Teacher at [employer] Physical Exam Exam: Exam: General: Awake, alert, and oriented X3. No acute distress. HEENT: Normal inspection CVS: Normal heart rate and rhythm. Pulses normal. Respiratory: No respiratory distress Skin: Warm, dry, no rashes noted to exposed skin. Normal skin color. Normal skin turgor. Extremities: Left knee with no obvious bony deformity. She does have moderate edema noted more pronounced on the lateral aspect. Able to flex and extend at the knee. No open wounds or lacerations. Negative anterior-posterior drawer test. No joint laxity with varus and valgus strain. Strong DP PT pulses. Sensation intact. Leg is well perfused. No palpable deficits at the distal femur, able to straight leg raise. Neuro: Oriented X 3. No motor deficit. No sensory deficit. Vital Signs: Vital Signs: Last Vital Signs Temp 98.3 F 06/21/25 10:26 Pulse 87 06/21/25 10:26 Resp 16 06/21/25 10:26 BP 112/68 06/21/25 10: Pulse Ox 97 06/21/25 10:26 O2 Del Method Room Air 06/21/25 10:26 BMI result Body Mass Index 29.2 Medications Administered Discontinued Medications Generic Name Dose Route Start Last Admin Trade Name Sheila PRN Reason Stop Dose Admin Acetaminophen 975 mg 06/21/25 09:55 06/21/25 10:18 Acetaminophen 325 Mg Tablet PO 06/21/25 09:56 975 mg ONCE ONE Administration Medical Decision Making Medical Decision Making MDM Narrative: This is a 50-year-old female, with a past medical history of thyroidectomy on levothyroxine, who presents emergency department with concerns of left knee pain status post was mechanical fall which occurred yesterday. On arrival, vital signs within normal limits. She is speaking full sentences under no acute distress. No head strike or LOC. She is not on anticoagulation. Will obtain x-ray of the left knee. Differential diagnoses include fracture, contusion, sprain, strain. Will medicate with Tylenol. We will continue to closely monitor pending overall workup. 10:55 AM 06/21/2025 (Sri Hawk PA-C): X-ray reveals a suprapatellar joint effusion, otherwise no other acute findings. Discussed findings with patient. Patient will be placed in Sunny wrap and crutches. Given orthopedic referral. Given strict return precautions, she understands and agrees with plan. Patient stable for discharge. Differential Diagnosis Differential Diagnoses: The differential diagnosis associated with the presentation includes See above Radiology Impression Discussion of test interpretation with radiology: I have reviewed the radiologist's reading. Radiologist Impression: EXAMINATION: XR KNEE, LEFT CLINICAL INFORMATION: pain COMPARISON: 02/13/2021. TECHNIQUE: Four views of the left knee. FINDINGS: There is normal bone mineralization. There is no definite fracture, dislocation, or suspicious bone lesion. There is normal alignment. Joint spaces are grossly preserved. Minimal osteoarthrosis of the patellofemoral joint present. Mild spurring of the tibial spines evident. There is a large suprapatellar joint effusion. There is no discrete soft tissue abnormality. XR/XR knee LT 4V IMPRESSION: 1. No definite acute fracture or dislocation. 2. Large suprapatellar joint effusion. Electronically signed by: Hussein Mcnair MD 06/21/2025 10:46 AM [facility] Dictated By: Hussein Mcnair MD Discharge Plan Discharge Clinical Impression: Sprain of left knee Patient Disposition: Home, Self-Care Instructions: Knee Sprain (ED) Additional Instructions: You were seen in the emergency department after injuring your left knee. Your x-ray does show swelling, no injury to the bone. It is unclear whether not you have injured any of the ligaments or tendons in your knee therefore you need to follow-up with the internal communications specialist. Rest, ice, elevate your knee. Use Sunny wrap and crutches. Do not bear weight until you feel as though you have stability and are without pain. Gentle xyxkw-ih-uixnta exercises are important, do these throughout the day. Alternate between ibuprofen and or Tylenol. You may take ibuprofen 600 mg every 6 hours, and take Tylenol 1000 mg every 8 hours. Alternating between both of these medications can provide you with relief. If any new or worsening symptoms occur including but not limited to inability to bend your knee, increased redness, pain, pain in your calf, chest pain, shortness of breath, please seek emergent care. I am also giving you a referral to the internal communications specialist, call to make an appointment. Prescriptions: New ibuprofen 600 mg tablet 600 mg PO Q6H PRN (Reason: pain) Qty: 30 0RF acetaminophen [Tylenol Extra Strength] 500 mg tablet 1,000 mg PO Q6H PRN (Reason: pain) Qty: 30 0RF No Action amoxicillin 500 mg capsule 500 mg PO Q12H Qty: 20 0RF bupropion HCl 300 mg tablet extended release 24 hr 300 mg PO QAM lamotrigine [Lamictal] 100 mg tablet 100 mg PO DAILY levothyroxine 175 mcg capsule 175 mcg PO DAILY Referrals: [facility] Orthopedic Surgeons [Provider Group] Stand Alone Forms: Work/School Release Print Language: [place]
--- NOTE | 2025-06-21 10:01 | PC.NURSE ---
Away for imaging. Will medicate upon return.
[2025-06-21 10:26] VITALS: BP 112/68; PULSE 87; RESP 16; TEMP 36.8; O2SAT 97
[2025-06-21 11:24] VITALS: BP 112/68; PULSE 87; RESP 16; TEMP 36.8; O2SAT 97
--- OUTSIDE RECORDS SUMMARY | 2025-06-21 11:29 | XMS_ITS | Encounter Summary ---
Author Organization [employer] Address [address] [facility] [address] [place] [address] Care Team Providers Care Trading Assistant Name Role Phone Adelina Moore MD Primary Care Provide r Encounter Details Date Type Department Care Team (Late st Contact Info) Description 09/01/2024 Orders Only [facility] MEDICINE [address] [place] [address] Orly Fregoso MD [address] [place] [address] Social History Tobacco Use Types Packs/Day Years [...] Care Team (Late st Contact Info) Description 07/31/2025 3:30 PM EST Office Visit [facility] MEDICINE [address] [place] [phone] Adelina Moore MD [address] [place] [phone] documented as of this encounter Visit Diagnoses Not on filedocumented in this encounter Additional Health Concerns Assessment Noted Time PHQ-9 Depression Total Score: 0 08/21/19 24 11:01 AM EST documented as of this encounter Care Teams Trading Assistant Relationship Specialty Start Date End Date Adelina Moore MD [address] [place] [phone] PCP - General Family Medicine 09/14/18 documented as of this encounter
--- OUTSIDE RECORDS SUMMARY | 2025-06-21 11:29 | XMS_ITS | Encounter Summary ---
Author Organization [facility] Address [address] [place] [address] Phone Care Team Providers Care Certified Nurse Name Role Phone Pcp, Unknown Primary Care Provider Unavailabl e Encounter Details Date Type Department Care Team (Late st Contact Info) Description 05/31/2020 Ancillary Orders [facility] [address] [facility] [address], [address] [place], [place] [phone] Rebekah De Luna MD [address] [place] [address] [email or web address] Social History Tobacco Use Types Packs/Day Years [...] on filedocumented in this encounter Care Teams Certified Nurse Relationship Specialty Start Date End Date Pcp, Unknown PCP - General 05/29/20 documented as of this encounter Additional Source Comments The information contained in this document represents components of the legal health record. It is not the complete legal health record.[facility]
--- OUTSIDE RECORDS SUMMARY | 2025-06-21 11:29 | XMS_ITS | Encounter Summary ---
Author Organization [employer] Address [address] [facility] [address] 7t [place] [address] Care Team Providers Care Double Surface Operator Name Role Phone Adelnia Moore MD Primary Care Provide r Encounter Details Date Type Department Care Team (Late st Contact Info) Description 01/25/2024 Orders Only [facility] [address] [place] [address] Provider, MD Sudeep Social History Tobacco Use [...] the past 12 months, has t he [employer] threatened to [...] Description 07/31/2025 3:30 PM EST Office Visit [facility] [address] [place] [address] Adelina Moore MD [address] [place] [phone] documented as of this encounter Procedures Procedure [...] documented as of this encounter Care Teams Double Surface Operator Relationship Specialty Start Date End Date Adelina Moore MD [address] [place] [phone] PCP - General Family Medicine 09/14/18 documented as of this encounter
--- OUTSIDE RECORDS SUMMARY | 2025-06-21 11:29 | XMS_ITS | Encounter Summary ---
Author Organization [employer] Address [address] [facility] 7 [place] [address] Care Team Providers Care Dietary Services Director Name Role Phone Adelina Moore MD Primary Care Provide r Reason for Visit * Reason Onset Date Comments pain when eating 12/18/2023 Encounter Details Date Type Department Care Team (Late st Contact Info) Description 12/18/2023 Telephone [facility] [address] [place] [address] Ashley Matos, DDS [address] [place] [address] pain when eating Social History Tobacco Use [...] documented in this encounter Plan of Treatment Upcoming Encounters Date Type Department Care Team (Late st Contact Info) Description 07/31/2025 3:30 PM EST Office Visit [facility] [address] [place] [address] Adelina Moore MD [address] [place] [address] documented as of this encounter Visit Diagnoses Not on filedocumented in this encounter Additional Health Concerns Assessment Noted Time PHQ-9 Depression Total Score: 0 08/21/19 24 11:01 AM EST documented as of this encounter Care Teams Dietary Services Director Relationship Specialty Start Date End Date Adelina Moore MD [address] [place] [address] [phone] PCP - General Family Medicine 09/14/18 documented as of this encounter
--- OUTSIDE RECORDS SUMMARY | 2025-06-21 11:29 | XMS_ITS | Encounter Summary ---
Author Organization [employer] Address [address] [facility] 7t [place] [address] Care Team Providers Care Master Automotive Glass Technician Name Role Phone Adelina Moore MD Primary Care Provide r Encounter Details Date Type Department Care Team (Late st Contact Info) Description 06/21/2025 Orders Only [facility] External Provider, [facility] Social History Tobacco Use Types Packs/Day Years Used Date Smoking Tobacco: Former Cigarettes Passive Smoke Exposure: Never Smokeless Tobacco: Never Alcohol Use Standard Drinks/Week [...] Description 07/31/2025 3:30 PM EST Office Visit [facility] [address] [place] [phone] Adelina Moore MD [address] [place] [address] documented as of this encounter Procedures Procedure Name Priority Date/Time Associated Diagnosis Comments XR KNEE 4+ VIEWS LEFT Routine 06/21/2025 10:07 AM EST documented in this encounter Results * XR Knee 4+ Views Left (06/21/2025 10:07 AM EST) Anatomical Region Laterality Modality Lower Extremities, Knee Left [facility] 06/21/2025 10:0 7 AM EST Narrative 06/21/2025 10:49 AM EST [address] [address] XRay Report Signed Patient: Casey Fitzgerald MR#: [id number] : 1975 Acct:[id number] Age/Sex: 50 / F ADM Date: 06/21/25 Loc: .ED Attending Dr: Ordering Physician: Sri Hawk Date of Service: 06/21/25 Procedure(s): XR knee LT 4V Accession Number(s): [id number] cc: Adelina Moore MD; Sri Hawk Reason for Exam: pain EXAMINATION: XR KNEE, LEFT CLINICAL INFORMATION: pain COMPARISON: 02/13/2021. TECHNIQUE: Four views of the left knee. FINDINGS: There is normal bone mineralization. There is no definite fracture, dislocation, or suspicious bone lesion. There is normal alignment. Joint spaces are grossly preserved. Minimal osteoarthrosis of the patellofemoral joint present. Mild spurring of the tibial spines evident. There is a large suprapatellar joint effusion. There is no discrete soft tissue abnormality. XR/XR knee LT 4V IMPRESSION: 1. No definite acute fracture or dislocation. 2. Large suprapatellar joint effusion. Electronically signed by: Hussein Mcnair MD 06/21/2025 10:46 AM [facility] Dictated By: Hussein Mcnair MD Signed By: <Electronically signed by Hussein Mcnair MD in OV> 06/21/25 1046 DD/ 1007 TD/TT: 06/21/25 1017 Rate Inserter: Procedure Note Donotuseinterpreter, Image - 06/21/[address] [address] XRay Report Signed Patient: Mechelle Fitzgerald#: M [id number] : 1975Acct:[id number] Age/Sex: 50 / FADM Date: 06/21/25 Loc: .ED Attending Dr: Ordering Physician: Sri Hawk Date of Service: 06/21/25 Procedure(s): XR knee LT 4V Accession Number(s): [id number] cc: Adelina Moore MD; Sri Hawk Reason for Exam: pain EXAMINATION: XR KNEE, LEFT CLINICAL INFORMATION: pain COMPARISON: 02/13/2021. TECHNIQUE: Four views of the left knee. FINDINGS: There is normal bone mineralization. There is no definite fracture, dislocation, or suspicious bone lesion. There is normal alignment. Joint spaces are grossly preserved. Minimal osteoarthrosis of the patellofemoral joint present. Mild spurring of the tibial spines evident. There is a large suprapatellar joint effusion. There is no discrete soft tissue abnormality. XR/XR knee LT 4V IMPRESSION: 1. No definite acute fracture or dislocation. 2. Large suprapatellar joint effusion. Electronically signed by: Hussein Mcnair MD 06/21/2025 10:46 AM EST RP Dictated By: Hussein Mcnair MD Signed By: <Electronically signed by Hussein Mcnair MD in OV> 06/21/25 1046 DD/ 1007 TD/TT: 06/21/25 1017 Rate Inserter: [facility] External Provider IMG XR PROCEDURES Final Result documented in this encounter Visit Diagnoses Not on filedocumented in this encounter Additional Health Concerns Assessment Noted Time PHQ-9 Depression Total Score: 0 01/27/20 25 1:38 PM EDT documented as of this encounter Care Teams Master Automotive Glass Technician Relationship Specialty Start Date End Date Adelina Moroe MD [address] [place] [phone] PCP - General Family Medicine 09/14/18 documented as of this encounter
--- OUTSIDE RECORDS SUMMARY | 2025-06-21 11:29 | XMS_ITS | Encounter Summary ---
Author Organization [employer] Address [address] [place] [address] 7 [place] [address] Care Team Providers Care Director Personal Name Role Phone Adelina Moore MD Primary Care Provide r Encounter Details Date Type Department Care Team (Late st Contact Info) Description 12/10/2022 Abstract [facility] [address] [place] [address] Maryan Ceron [address] [place] [address] Social History Tobacco Use Types Packs/Day Years [...] Description 07/31/2025 3:30 PM EST Office Visit [facility] [address] [place] [address] Adelina Moore MD [address] [place] [address] documented as of this encounter Visit Diagnoses Not on filedocumented in this encounter Care Teams Director Personal Relationship Specialty Start Date End Date Adelina Moore MD [address] [place] [address] PCP - General Family Medicine 09/14/18 documented as of this encounter
--- OUTSIDE RECORDS SUMMARY | 2025-06-21 11:29 | XMS_ITS | Encounter Summary ---
Author Organization [employer] Address [address] [place] [address] 7 [place] [address] Care Team Providers Care Data Security Coordinator Name Role Phone Adelina Moore MD Primary Care Provide r Encounter Details Date Type Department Care Team (Late st Contact Info) Description 12/23/[address] [facility] [address] [place] [address] Maryan Ceron [address] [place] [address] Social History Tobacco Use Types Packs/Day Years [...] Description 07/31/2025 3:30 PM EST Office Visit [facility] [address] [place] [address] Adelina Moore MD [address] [place] [address] documented as of this encounter Visit Diagnoses Not on filedocumented in this encounter Care Teams Data Security Coordinator Relationship Specialty Start Date End Date Adelina Moore MD [address] [place] [address] PCP - General Family Medicine 09/14/18 documented as of this encounter
--- OUTSIDE RECORDS SUMMARY | 2025-06-21 11:29 | XMS_ITS | Encounter Summary ---
Author Organization [facility] Address [address] [facility] [address] [place] [phone] Phone Care Team Providers Care Seed Cone Picker Name Role Phone Pcp, Unknown Primary Care Provider Unavailabl e Encounter Details Date Type Department Care Team (Late st Contact Info) Description 05/31/2020 Ancillary Orders [facility] [address] [place] [address] [place] [address] Rebekah De Luna MD [address] [place] [phone] [email or web address] Palpitation Social History Tobacco Use Types Packs/Day [...] Palpitations documented in this encounter Care Teams Seed Cone Picker Relationship Specialty Start Date End Date Pcp, Unknown PCP - General 05/29/20 documented as of this encounter Additional Source Comments The information contained in this document represents components of the legal health record. It is not the complete legal health record.[facility]
--- OUTSIDE RECORDS SUMMARY | 2025-06-21 11:29 | XMS_ITS | Encounter Summary ---
Author Organization [employer] Address [address] [place] [address] 7 [place] [address] Care Team Providers Care Cord Tire Builder Name Role Phone Adelina Moore MD Primary Care Provide r Encounter Details Date Type Department Care Team (Late Contact Info) Description 07/31/2023 Orders Only [facility] [address] [place] [address] [phone] Adelina Moore MD [address] [place] [address] [phone] Acquired hypothyroidism (Primary Dx) Social History Tobacco [...] Description 07/31/2025 3:30 PM EST Office Visit [facility] [address] [place] [address] [phone] Adelina Moore MD [address] [place] [address] [phone] documented as of this encounter Visit Diagnoses Diagnosis Acquired hypothyroidism- Primary Unspecified hypothyroidism documented in this encounter Care Teams Cord Tire Builder Relationship Specialty Start Date End Date Adelina Moore MD [address] [place] [address] PCP - General Family Medicine 09/14/18 documented as of this encounter
--- OUTSIDE RECORDS SUMMARY | 2025-06-21 11:29 | XMS_ITS | Encounter Summary ---
Author Organization [facility] Address [address] [place] [phone] Phone Care Team Providers Care Usability Specialist Name Role Phone Pcp, Unknown Primary Care Provider Unavailabl e Encounter Details Date Type Department Care Team (Late st Contact Info) Description 05/31/2020 Procedure [facility] [address] [place] [address] [place] [address] Social History Tobacco Use Types Packs/Day Years [...] on filedocumented in this encounter Care Teams Usability Specialist Relationship Specialty Start Date End Date Pcp, Unknown PCP - General 05/29/20 documented as of this encounter Additional Source Comments The information contained in this document represents components of the legal health record. It is not the complete legal health record.[facility]
--- OUTSIDE RECORDS SUMMARY | 2025-06-21 11:29 | XMS_ITS | Encounter Summary ---
Author Organization [employer] Address [address] [place] [address] 7t [place] [address] Care Team Providers Care Boring Machine Operator Horizontal Name Role Phone Adelina Moore MD Primary Care Provide r Encounter Details Date Type Department Care Team ([facility] Contact Info) Description 01/14/2023 Orders Only [facility] [address] [place] [phone] Cristal Plata MD [address] [place] [address] [phone] Radiculopathy of arm (Primary Dx) Social History [...] Encounters Date Type Department Care Team (Late Contact Info) Description 07/31/2025 3:30 PM EST Office Visit [facility] [address] [place] [phone] Adelina Moore MD [address] [place] [address] [phone] documented as of this encounter Visit Diagnoses Diagnosis Radiculopathy of arm- Primary Brachial neuritis or radiculitis nos documented in this encounter Care Teams Boring Machine Operator Horizontal Relationship Specialty Start Date End Date Adelina Moore MD [address] [place] [address] PCP - General Family Medicine 09/14/18 documented as of this encounter
--- OUTSIDE RECORDS SUMMARY | 2025-06-21 11:29 | XMS_ITS | Clinical Summary ---
Author Organization [facility] Address [address] [address] Phone Care Team Providers Care Elevated Guard Name Role Phone Pcp, Unknown Primary Care [...] YEARS) 1993 PAP SMEAR 1996 MAMMOGRAM 2015 INFLUENZA VACCINE (#1) 2025 , 05/23/2019, 09/14/2018 COVID-19 VACCINE (2 - 2024-2 6 season) 2025 07/04/2021 PNEUMOCOCCAL VACCINES (50+ years) (1 of 1 - PCV) 2025 ZOSTER VACCINES (1 of 2) 2025 RSV VACCINE (1 - 1-dose 75+ series) 2050 COLORECTAL CANCER SCREENING Completed HEPATITIS A VACCINES Aged Out No long [...] topic Medical Devices Not on file Insurance [facility] NON NSPG PCP [employer] [employer] [facility] NON [employer] [employer] PCP [employer] [facility] NON NSPG PCP SILVER CLARITY CONNECTORCARE [facility] NON NSPG PCP SILVER CLARITY CONNECTORCARE [facility] NON NSPG PCP SILVER CLARITY CONNECTORCARE [facility] NON NSPG PCP SILVER CLARITY CONNECTORCARE [facility] NON NSPG PCP [place] [facility] [facility] [place] [place] PCP [place] [place] PCP [employer] Care Teams Elevated Guard Relationship Specialty Start Date End Date Pcp, Unknown PCP - General 05/29/20 Additional Source Comments The information contained in this document represents components of the legal health record. It is not the complete legal health record.[facility]
--- OUTSIDE RECORDS SUMMARY | 2025-06-21 11:30 | XMS_ITS | Clinical Summary ---
Author Organization [employer] Address [address] [place] [address] 7t [place] [address] Care Team Providers Care Labor Relations Teacher Name Role Phone Adelina Moore MD Primary Care Provide r Allergies Active Allergy Reactions Criticality Noted Date Comments Metronidazole Rash Low 12/03/2022 Medications buPROPion XL (Wellbutrin XL) 150 MG 24 [...] TO 2 TABLETS DAILY 06/18/20 24 Active levothyroxine (Synthroid, Levoxyl) 150 MCG tablet TAKE 1 TABLET (150 MCG) BY MOUTH BEFORE BREAKFAST. 90 tablet 1 03/01/20 25 026 Active amLODIPine (Norvasc) 5 MG tabletIndication s:Essential hypertension TAKE 1 TABLET (5 MG) BY MOUTH ONCE PER DAY. 90 tablet 06/08/20 25 026 Active amLODIPine (Norvasc) 5 MG tabletIndication s:Essential hypertension Take 1 tablet (5 mg) by mouth Once per day. 30 tablet 1 05/17/20 25 025 Discontinued Active Problems Problem Noted Date Diagnosed Date [...] Encounters Date Type Department Care Team Description 06/21/2025 Orders Only [facility] External Provider, [facility] 06/08/2025 Refill [facility] [address] [place] [address] Soren Segovia MD Essential hypertension 05/31/2025 11:30 AM EST Clinical Support [facility] [address] [place] [address] Theresa Bernard, ANGELES Hypertension, unspecified type 05/31/2025 Travel 05/17/2025 5:00 PM EDT Office Visit [facility] [address] [address] Soren Segovia MD Essential hypertension (Primary Dx); Nonintractable episodic headache, unspecified headache type 05/17/2025 Telephone [facility] [address] [place] [address] Soren Segovia MD 05/17/2025 Telephone [facility] [address] [place] [address] Adelina Moore MD Nurse Triage 05/17/2025 Travel 05/04/[address] [address] Adelina Moore MD pt request appt 05/04/[address] [address] Adelina Moore MD Nurse Triage 04/27/[address] [address] Adelina Moore MD Dec recall 04/05/2025 3:00 PM EDT Telemedicine [address] [address] Adelina Moore MD Acquired hypothyroidism (Primary Dx); Vaginal dryness; Dietary counseling; Exercise counseling 04/05/2025 Travel from Last 3 Months Immunizations Immunization Administration [...] Sign Reading Time Taken Comments Blood Pressure 130/82 05/31/2025 1:28 PM EST Pulse 78 05/31/2025 1:28 PM EST Temperature 36.6 C (97.8 F) 05/17/2025 4:41 PM EDT Respiratory Rate 14 05/17/2025 4:41 PM EDT Oxygen Saturation 99% 01/26/2025 1:37 PM EDT Inhaled Oxygen Concentration - - Weight 77 kg (169 lb 12.8 oz) 05/17/2025 4:41 PM EDT Height 162.6 cm (5' 4 ) 05/17/2025 4:41 PM EDT Body Mass Index 29.15 05/17/2025 4:41 PM EDT Plan of Treatment Upcoming Encounters Date Type Department Care Team (Late st Contact Info) Description 07/31/2025 3:30 PM EST Office Visit [facility] [address] [place] [address] Adelina Moore MD [address] [place] [address] Health Maintenance Due Date Last Done Comments FIT DNA/Cologuard 1975 FIT 1975 FOBT 1975 Sigmoidoscopy 1975 Family Planning (PISQ) 1990 DTaP/Tdap/Td Vaccines (1 - Tdap) 1994 Hepatitis B Vaccines (1 of 3 - 19+ 3-dose series) 1994 Dental Oral Exam 07/13/2024 01/11/2024, 11/13/2022 Dental Prophylaxis 07/13/2024 01/11/2024, 12/03/2022 Mammogram 09/10/2024 09/10/2023, 0507/2020, 12/08/2019, Additional history exists Dental X-Ray: Bitewings [...] Tobacco Screening 02/27/2026 02/27/2025 CT Colonography 01/21/2029 01/22/2024, 01/22/2024 Colonoscopy 01/21/2029 01/22/2024 Colorectal Cancer Screening 01/21/2029 Lipid Panel 01/30/2030 01/30/2025, 09/12/2020 RSV Patients and Patients Aged 60 years [...] VIEWS LEFT Routine 06/21/2025 10:07 AM EST NERVE CONDUCTION TEST Routine 04/25/2025 Right wrist pain LIPID PANEL, STANDARD Routine 01/30/2025 7:29 AM EDT Easy bru[address] COLONOGRAPHY SCREENING Routine 01/22/2024 2:30 PM [...] 4:01 PM EDT HPV GENOTYPES 16,18/45 Routine 12:00 AM EDT THINPREP PAP Routine 10/18/2020 12:00 AM EDT from Last 3 Months or Most Recently Relevant to Health Maintenance Results * XR Knee 4+ Views Left (06/21/2025 10:07 AM EST) Anatomical Region Laterality Modality Lower Extremities, Knee Left [facility] 06/21/2025 10:0 7 AM EST Narrative 06/21/2025 10:49 AM EST [place] [address] XRay Report Signed Patient: Casey Fitzgerald MR#: [id number] : 1975 Acct:[id number] Age/Sex: 50 / F ADM Date: 06/21/25 Loc: HO.ED Attending Dr: Ordering Physician: Sri Hawk Date of Service: 06/21/25 Procedure(s): XR knee LT 4V Accession Number(s): [id number] cc: Adelina Moore MD; Sri Hawk Reason [...] 06/21/25 1046 DD/ 1007 TD/TT: 06/21/25 1017 Christmas Tree Grader: Procedure Note Donotuseinterpreter, Image - 06/21/2025 [place] [address] XRay Report Signed Patient: Mechelle Fitzgerald#: M [id number] : 1975Acct:[id number] Age/Sex: 50 / FADM Date: 06/21/25 Loc: HO.ED Attending Dr: Ordering Physician: Sri Hawk Date of Service: 06/21/25 Procedure(s): XR knee LT 4V Accession Number(s): [id number] cc: Adelina Moore MD; Sri Hawk Reason [...] 06/21/25 1046 DD/ 1007 TD/TT: 06/21/25 1017 Christmas Tree Grader: [facility] External Provider IMG XR PROCEDURES Final Result * Nerve conduction test (04/25/2025) Adelina Jeffrey MD NEUROLOGY ORDERABLES Final Result * (ABNORMAL) Lipid Panel, Standard (01/30/2025 7:29 AM EDT) Triglycerides 53 <150 mg/dL [facility] Comment:Desirable Triglyceri de: less than 150 mg/dLBorderline High Triglyceride 150-199 mg/dLHigh Triglyceride: 200-499 mg/dLVery High Triglyceride: greater than or equal to 5OO mg/dL Cholesterol 184 <200 mg/dL [facility] Comment:Desirable Cholestero l: less than 200 mg/dLBorderline High Cholesterol: 200-239 mg/dLHigh Cholesterol: greater than 239 mg/dL LDL Cholesterol Calculated 119(H) <100 mg/dL [facility] Comment:Desirable LDL: less than 100 mg/dLNear Optimal/Above Optimal LDL: 110- 129 mg/dLBorderline High LDL: 130-159 mg/dLHigh LDL: 160-189 mg/dLVery High LDL: greater than or equal to 190 mg/dL HDL Cholesterol 55 >40 mg/dL [facility] Comment:Desirable HDL: great er than 40 mg/dL Note: This HDL assay may give artificially low results in patients with liver disease. Blood Venous blood specimen / Unknown 01/30/2025 7:29 AM EDT 01/30/2025 7:29 AM EDT Adelina Jeffrey MD LAB BLOOD ORDERABLES Final Result [facility] [address] [place] [address] [phone] * CT colonography screening (01/22/2024 2:30 PM EDT) Anatomical Region Laterality Modality Colon Computed Tomogra phy 01/22/2024 2:30 PM EDT Narrative 01/27/2024 7:20 AM EDT [address] [address] [address] Scan Report Signed Patient: Casey Fitzgerald MR#: [id number] : 1975 Acct:[id number] Age/Sex: 48 / F ADM Date: 01/22/24 Loc: HO.[facility] Attending Dr: Mishel Wallace MD Ordering Physician: Mishel Wallace MD Date of Service: 01/22/24 Procedure(s): CT colonography Accession Number(s): [id number] cc: Adelina Moore MD; Mishel Wallace MD [...] No large colonic mass. Dictated By: Jeison Kineny MD Signed By: <Electronically signed by Jeison Kinney MD in OV> 01/27/24 0715 DD/ 1430 TD/TT: Christmas Tree Grader: BC Procedure Note Donotuseinterpreter, Image - 02/04/[address] [address] [address] Scan Report Signed Patient: Mechelle Fitzgerald#: M [id number] : 1975Acct:[id number] Age/Sex: 48 / FADM Date: 01/22/24 Loc: [facility] Attending Dr: Mishel Wallace MD Ordering Physician: Mishel Wallace MD Date of Service: 01/22/24 Procedure(s): CT colonography Accession Number(s): [id number] cc: Adelina Moore MD; Mishel Wallace MD [...] in OV> 01/27/24 0715 DD/ 1430 TD/TT: Christmas Tree Grader: CATHI [facility] External Provider IMG CT PROCEDURES Final Result * Hm Colonoscopy (01/22/2024 12:00 PM EDT) Historical Provider HEALTH MAINTENANCE Final Result * BI Mammogram Screening Tomosynthesis Bilateral (09/10/2023 2:14 PM EST) Anatomical Region Laterality Modality Breast Bilateral Mammography 09/10/2023 2:14 PM EST Narrative 10/06/2023 11:54 AM EDT [address] [place] [address] Mammography Report Signed Patient: Casey Fitzgerald MR#: M [id number] : 1975 Acct:[id number] Age/Sex: 48 / F ADM Date: 09/10/23 Loc: HO.MAMMO Attending Dr: Ranjith Spencer CNM Ordering Physician: RANJITH SPENCER CNM Results: 1 Negative Date of Service: 09/10/23 Follow Up: 1 Year From Orig inal Mammogram Procedure(s): MM tomosynthesis screening BI Accession Number(s): [id number] cc: Adelina Moore MD; RANJITH SPENCER CNM [...] in OV> 10/06/23 1150 DD/ 1414 TD/TT: Christmas Tree Grader: Procedure Note Donotuseinterpreter, Image - 10/06/2023 [facility] [address] [place] [address] Mammography Report Signed Patient: Mechelle Fitzgerald#: M [id number] : 1975Acct:[id number] Age/Sex: 48 / FADM Date: 09/10/23 Loc: [facility] Attending Dr: Ranjith Spencer CNM Ordering Physician: RANJITH SPENCEResults: 1 Negative Date of Service: 09/10/23Follow Up: 1 Year From Orig inal Mammogram Procedure(s): MM tomosynthesis screening BI Accession Number(s): [id number] cc: Adelina Moore MD; RANJITH SPENCER CNM [...] in OV> 10/06/23 1150 DD/ 1414 TD/TT: Christmas Tree Grader: us Ranjith Spencer CN IMG BI PROCEDURES Final R esult * HIV-1/2 Antigen and Antibodies, Fourth Generation, with Reflexes (10/29/2022 9:46 AM EDT) HIV Antigen/Antibody, 4th Generation NON-REAC TIVE NON-REAC TIVE [facility] Comment: HIV-1 antigen and HIV-1/HIV-2 antibodies were [...] purpose. For additional information please refer to http://education.opvizor.GoodThreads/faq/ADG232 (This link is being provided for informational/ educational purposes only.) The performance of this assay has not been clinically validated in patients less than 2 years old. Blood Venous blood specimen / Unknown 10/29/2022 9:46 AM EDT 10/29/2022 9:46 AM EDT Narrative [facility] - 10/30/2022 2:40 PM EDT FASTING:NO FASTING: NO us Gayatri Bauer HOUSEHOLD APPLIANCE REPAIRER LAB BLOOD ORDERABLES Final Res ult [facility] [address], [place] [address] [facility] [address] [place] [address] * HEPATITIS C AB W/REFL TO HCV RNA, QN, PCR (05/29/2021 4:01 PM EDT) HEPATITIS C ANTIBODY NON-REACT OLLIE NON-REACT OLLIE [facility] INDEX 0.01 <1.00 [facility] Comment: HCV antibody was non-reactive. There is no laboratory evidence of HCV infection. In most cases, no further action is required. However, if recent HCV exposure is suspected, a test for HCV RNA (test code 51605) is suggested. For additional information please refer to http://education.Huddlebuy/faq/PSV54h2 (This link is being provided for informational/ educational purposes only.) 05/29/2021 4:01 PM EDT Adelina Jeffrey MD HISTORICAL/NON ORDERA BLE LABS Final Result [facility] [address] * THINPREP PAP (10/18/2020 12:00 AM EDT) Clinical Information: None given [facility] COMMENT SEE COMMENT [facility]OUNDAT[facility] ON [...] along with historic and current clinical information. Manager Adult : SEE COMMENT [facility] Comment: BROOKE CT(ASCP) CT screening location: [address] [address] Interpretation/R esult: Negative for intraepithelial lesion or malignancy. [facility] LMP: NONE GIVEN [facility] Prev. BX: NONE [facility]IVEN [facility] Prev. PAP: NONE [facility]IV[facility] SOURCE: None given [facility] Statement Of Adequacy: SEE COMMENT [facility] Comment: Satisfactory for evaluation. Endocervical/transformation zone component present. Age and/or menstrual status not provided 10/18/2020 Adelina Jeffrey MD LAB PATHOLOGY ORDERAB LES Final Result Performing Organization Address [facility] Co de Phone Number [facility] [address] * HPV GENOTYPES 16,18/45 (10/18/2020 12:00 AM EDT) HPV 16 RNA NOT DETECTED NOT DETECTED [facility] HPV 18/45 RNA NOT DETECTED NOT DETECTED [facility] Comment: Methodology: Retirement Specialist Mediated Amplification The analytical performance characteristics of this assay have been determined by [facility]. The modifications have not been cleared or approved by the FDA. This assay has been validated pursuant to the CLIA regulations and is used for clinical purposes. 10/18/2020 us Adelina Jeffrey MD LAB CYTOLOGY ORDERABL ES Final Result Performing Organization Address [facility] Co de Phone Number [facility] [address] from Last 3 Months or Most Recently Relevant to Health Maintenance Insurance [facility] STAND ADULT Care Teams Labor Relations Teacher Relationship Specialty Start Date End Date Adelina Moore MD [address] [place] [phone] PCP - General Family Medicine 09/14/18
== END 2025-06-21 11:25 | disposition home or self-care (01) ==
PROVIDERS: Emergency Provider Emergency Medicine; PCP Internal Medicine
DX: S83.92XA Sprain of unspecified site of left knee, initial encounter (principal); W08.XXXA Fall from other furniture, initial encounter; Y93.9 Activity, unspecified; Y92.009 Unspecified place in unspecified non-institutional (private) residence as the place of occurrence of the external cause; Y99.9 Unspecified external cause status; Z88.8 Allergy status to other drugs, medicaments and biological substances
CPT/HCPCS: 73564; 99283

== ENCOUNTER → 2025-06-21 09:55 | Outpatient (BNV) | payer MEDICAID, SELFPAY | PROVIDERS: Emergency Provider Emergency Medicine; PCP Internal Medicine; Visit Provider Radiology Diagnostic Radiology | DX: M25.462 Effusion, left knee (principal) | CPT/HCPCS: 73564 ==

== ENCOUNTER 2025-07-18 14:02 | Outpatient (AMB) | payer MEDICAID, SELFPAY ==
--- NOTE | 2025-07-18 14:06 | A.OFFVIS_ITS ---
Intake Visit Reasons: New Pt - left knee sprain, DOI 06/20/25 Intake Note: Casey is a 50 year old female who presents today as a new patient for a evaluation of her left knee injury, DOI 06/20/25. Patient reports she was standing on a stool reaching for something, when she she lost her balance causing her to fall. She is unsure if she twisted or landed directly onto her knee, however she immediately had pain in her knee. Patient states that her pain is feeling better today. She states that she took ibuprofen and cool compresses with relief. Allergies metronidazole Allergy (Mild, Verified 07/18/25 14:16) Itching HPI Comments Details: History of Present Illness The patient is a 50 year old female presenting for evaluation of left knee pain following a fall on 06/20/25. She reports landing upright on both feet, which caused her knee to give way, and she was unable to get up immediately. She was unable to bear weight for several days following the injury. Currently, her symptoms have improved significantly, and she is walking almost normally. She has been using an Sunny wrap for compression. Initially, the pain was primarily in the back of the knee. She notes an occasional clicking sensation when walking but denies any sharp pains. Pain Description - Location: The pain is in the left knee and was initially located on the posterior aspect. - Onset: The pain began after a fall on 06/20/25. - Character: The patient denies sharp pains but reports a clicking sensation. - Alleviating factors: Using an Sunny wrap for compression helps. - Interference with function: The patient was unable to bear weight for several days but is now walking almost normally. [facility] Medical History (Updated 07/18/25 @ 15:06 by Mahi Aguirre PA-C) Hemorrhoids Hypothyroid Surgical History Previous section History of appendectomy H/O thyroidectomy Social History Household Members Other:: 2 kids Patient Tobacco Use Status: Current everyday Tobacco user Tobacco use type: Cigarette Cigarettes Per Day: 5 Current occupational status: employed Current occupation: Teacher at [employer] Review of Systems Narrative Review of Systems - Musculoskeletal: Reports improving left knee pain, intermittent clicking in the left knee with ambulation, and persistent mild swelling. Denies sharp pains. Physical Exam Exam Exam: Physical Exam - Musculoskeletal: Inspection of the left knee reveals mild swelling. Palpation elicits tenderness over the medial aspect. The patient is able to perform a straight leg raise. Range of motion 0-110. NVI. Const General: cooperative, healthy appearing and no acute distress Resp Effort & Inspection: normal respiratory effort and able to speak in complete sentences Psych Appearance: grossly normal Mental Status: mental status grossly normal Attitude: cooperative Assessment & Plan Assessment & Plan (1) Tibial plateau fracture, left: Code(s): S82.142A - Displaced bicondylar fracture of left tibia, initial encounter for closed fracture Category: Medical Plan 1. Left Knee Pain X-rays revealed a very subtle finding suspicious for a tibial plateau fracture. Given that it has been four weeks since the injury and her symptoms are improving, a CT scan of the left knee has been ordered stat to confirm or rule out a fracture and to guide activity recommendations. Surgical intervention is n ot anticipated. The patient is advised to avoid high-impact activities. The hospital will contact her to schedule the scan, and results will be reviewed upon receipt. I did discuss a knee brace with the patient that she would like to defer at this time. I educated the patient that should she have a sudden sharp increase in pain she should stop weight-bearing immediately and contact our office. Patient understands and accepts. Consent The rationale for obtaining a CT scan of the left knee was discussed with the patient. It was explained that the scan would confirm or rule out a fracture to better determine appropriate activity levels. The patient understood and agreed with the plan. Patient was informed and verbally consented to the use of an ambient scribe for clinic note documentation during this visit. Orders: Orders CT knee LT wo IV con Today S82.142A - Displaced bicondylar fracture of left tibia, initial encounter for closed fracture Coding Level of Care Code New Pt Level 4 (55958) Diagnoses Tibial plateau fracture, left S82.142A
--- OUTSIDE RECORDS SUMMARY | 2025-07-18 15:17 | XMS_ITS | Encounter Summary ---
Author Organization [employer] Address [address] [facility] 7t [place] [address] Care Team Providers Care Blasting Miner Name Role Phone Adelina Moore MD Primary Care Provide r Encounter Details Date Type Department Care Team (Late st Contact Info) Description 09/01/2024 Orders Only [facility] [address] [place] [address] Orly Fregoso MD [address] [place] [address] Social History Tobacco Use Types Packs/Day Years [...] Description 07/31/2025 3:30 PM EST Office Visit [facility] [address] [place] [phone] Adelina Moore MD [address] [place] [phone] documented as of this encounter Visit Diagnoses Not on filedocumented in this encounter Additional Health Concerns Assessment Noted Time PHQ-9 Depression Total Score: 0 08/21/19 24 11:01 AM EST documented as of this encounter Care Teams Blasting Miner Relationship Specialty Start Date End Date Adelina Moore MD [address] [place] [phone] PCP - General Family Medicine 09/14/18 documented as of this encounter
--- OUTSIDE RECORDS SUMMARY | 2025-07-18 15:17 | XMS_ITS | Encounter Summary ---
Author Organization [employer] Address [address] [place] [address] 7t [place] [address] Care Team Providers Care Nursing Administrator Name Role Phone Adelina Moore MD Primary Care Provide r Encounter Details Date Type Department Care Team ([facility] Contact Info) Description 01/14/2023 Orders Only [facility] [address] [place] [phone] Cristal Plata MD [address] [place] [address] [phone] Radiculopathy of arm (Primary Dx) Social History [...] Description 07/31/2025 3:30 PM EST Office Visit [facility] [address] [place] [phone] Adelina Moore MD [address] [place] [address] [phone] documented as of this encounter Visit Diagnoses Diagnosis Radiculopathy of arm- Primary Brachial neuritis or radiculitis nos documented in this encounter Care Teams Nursing Administrator Relationship Specialty Start Date End Date Adelina Moore MD [address] [place] [address] PCP - General Family Medicine 09/14/18 documented as of this encounter
--- OUTSIDE RECORDS SUMMARY | 2025-07-18 15:17 | XMS_ITS | Encounter Summary ---
Author Organization [employer] Address [address] [place] [address] 7 [place] [address] Care Team Providers Care College Football Coach Name Role Phone Adelina Moore MD Primary Care Provide r Reason for Visit * Reason Comments Pre-visit Planning SDOH screening compl eted on 01/26/2025 Encounter Details Date Type Department Care Team ([facility] st Contact Info) Description 07/13/2025 Patient Outreach [facility] [address] [place] [address] Adelina Moore MD [address] [place] [address] Pre-visit Planning (SDOH screening completed on 01/26/2025) Social History Tobacco Use Types Packs/Day Years [...] AM EDT documented as of this encounter Progress Notes * Fidelia Mccann - 07/13/2025 1:32 PM EST CC Fidelia. Placed outbound call to patient to complete pre-visit planning. No answer at this time. Patient name and were not confirmed. CC left voicemail requesting return call. Direct contact information provided. documented in this encounter Plan of Treatment Upcoming Encounters Date Type Department Care Team (Late st Contact Info) Description 07/31/2025 3:30 PM EST Office Visit [facility] [address] [place] [address] dAelina Moore MD [address] [place] [address] documented as of this encounter Visit Diagnoses Not on filedocumented in this encounter Additional Health Concerns Assessment Noted Time PHQ-9 Depression Total Score: 0 01/27/20 25 1:38 PM EDT documented as of this encounter Care Teams College Football Coach Relationship Specialty Start Date End Date Adelina Moore MD [address] [place] [address] PCP - General Family Medicine 09/14/18 documented as of this encounter
--- OUTSIDE RECORDS SUMMARY | 2025-07-18 15:17 | XMS_ITS | Encounter Summary ---
Author Organization [facility] Address [address] [place] [address] Phone Care Team Providers Care Drafter Cartographic Name Role Phone Pcp, Unknown Primary Care Provider Unavailabl e Encounter Details Date Type Department Care Team (Late st Contact Info) Description 05/31/2020 Ancillary Orders [facility] [address] [facility] [address] [place], [place] [phone] Rebekah De Luna MD [address] [place] [phone] [email or web address] Social History Tobacco Use Types Packs/Day Years [...] on filedocumented in this encounter Care Teams Drafter Cartographic Relationship Specialty Start Date End Date Pcp, Unknown PCP - General 05/29/20 documented as of this encounter Additional Source Comments The information contained in this document represents components of the legal health record. It is not the complete legal health record.[facility]
--- OUTSIDE RECORDS SUMMARY | 2025-07-18 15:17 | XMS_ITS | Encounter Summary ---
Author Organization [employer] Address [address] [facility] 7t [place] [address] Care Team Providers Care Hair Mixer Name Role Phone Adelina Moore MD Primary Care Provide r Reason for Visit * Reason Onset Date Comments pain when eating 12/18/2023 Encounter Details Date Type Department Care Team ([facility] st Contact Info) Description 12/18/2023 Telephone [facility] ADULT D[facility]AL [address] [place] [address] Ashley Matos, DDS [address] [place] [address] pain when eating Social History Tobacco Use [...] 07/31/2025 3:30 PM EST Office Visit [facility] MEDICINE [address] [place] [address] Adelina Moore MD [address] [place] [address] documented as of this encounter Visit Diagnoses Not on filedocumented in this encounter Additional Health Concerns Assessment Noted Time PHQ-9 Depression Total Score: 0 08/21/19 24 11:01 AM EST documented as of this encounter Care Teams Hair Mixer Relationship Specialty Start Date End Date Adelina Moore MD [address] [place] [address] [phone] PCP - General Family Medicine 09/14/18 documented as of this encounter
--- OUTSIDE RECORDS SUMMARY | 2025-07-18 15:17 | XMS_ITS | Clinical Summary ---
Author Organization [employer] Address [address] [place] [address] 7t [place] [address] Care Team Providers Care Informatics Manager Name Role Phone Adelina Moore MD Primary Care Provide r Allergies Active Allergy Reactions Criticality Noted Date Comments Metronidazole Rash Low 12/03/2022 Medications buPROPion XL (Wellbutrin XL) 150 MG 24 hr tablet Take 1 tablet (150 mg) by mouth in the morning. 30 tablet 4 Active atomoxetine (Strattera) 80 MG capsule Take 1 capsule by mouth Once per day. 4 Active hydrOXYzine HCl (Atarax) 25 MG tablet Take 1 tablet by mouth Once per day. 5 Active lamoTRIgine (LaMICtal) 25 MG tablet TAKE 1 TABLET BY MOUTH ONCE A DAY FOR 14 DAYS THEN INCREASE TO 2 TABLETS DAILY 4 Active levothyroxine (Synthroid, Levoxyl) 150 MCG tablet TAKE 1 TABLET (150 MCG) BY MOUTH BEFORE BREAKFAST. 90 tablet 1 5 08/28/19 26 Active amLODIPine (Norvasc) 5 MG tabletIndications :Essential hypertension TAKE 1 TABLET (5 MG) BY MOUTH ONCE PER DAY. 90 tablet 5 08/07/19 26 Active Active Problems Problem Noted Date Diagnosed Date [...] Encounters Date Type Department Care Team Description 07/13/2025 Patient Outreach [facility] [address] [place] [phone] Adelina Moore MD Pre-visit Planning (SDOH screening completed on 01/26/2025) 06/21/2025 Orders Only [facility] External Provider, [facility] 06/08/2025 Refill [facility] WALK-IN [address] [phone] Soren Segovia MD Essential hypertension 05/31/2025 11:30 AM EST Clinical Support [facility] [address] [place] [address] Theresa Bernard RN Hypertension, unspecified type 05/31/2025 Travel 05/17/2025 5:00 PM EDT Office Visit [facility] [address] [place] [address] Soren Seogvia MD Essential hypertension (Primary Dx); Nonintractable episodic headache, unspecified headache type 05/17/2025 [facility] [address] [address] Soren Segovia MD 05/17/2025 Telephone [facility] [address] [address] Adelina Moore MD Nurse Triage 05/17/2025 Travel 05/04/[address] [address] Adelina Moore MD pt request appt 05/04/[address] [address] Adelina Moore MD Nurse Triage 04/27/[address] [address] Adelina Moore MD Dec recall from Last 3 Months Immunizations Immunization Administration [...] Description 07/31/2025 3:30 PM EST Office Visit [facility] [address] [place] [address] [phone] Adelina Moore MD [address] [place] [address] Health Maintenance Due Date Last Done Comments [...] [employer] 01/11/2025 01/11/2024, 11/13 COVID-19 Vaccine ( - season) 2025 05/28/2023, 07/04/2021 Influenza Vaccine (#1) [...] Laterality Modality Lower Extremities, Knee Left Radiogra phic Imaging 06/21/2025 10:0 7 AM EST Narrative 06/21/2025 10:49 AM EST [place] [address] XRay Report Signed Patient: Casey Fitzgerald MR#: [id number] : 1975 Acct:[id number] Age/Sex: 50 / F ADM Date: 06/21/25 Loc: .ED Attending Dr: Ordering Physician: Sri Hawk Date of Service: 06/21/25 Procedure(s): XR knee LT 4V Accession Number(s): [id number] cc: Adelina Moore MD; Sri Hawk Reason [...] 06/21/25 1046 DD/ 1007 TD/TT: 06/21/25 1017 Psychotherapist Counselor: Procedure Note Donotuseinterpreter, Image - 06/21/[address] [address] XRay Report Signed Patient: Mechelle Fitzgerald#: M [id number] : 1975Acct:[id number] Age/Sex: 50 / FADM Date: 06/21/25 Loc: .ED Attending Dr: Ordering Physician: Sri Hawk Date of Service: 06/21/25 Procedure(s): XR knee LT 4V Accession Number(s): [id number] cc: Adelina Moore MD; Sri Hawk Reason [...] 06/21/25 1046 DD/ 1007 TD/TT: 06/21/25 1017 Psychotherapist Counselor: [facility] External Provider IMG XR PROCEDURES Final Result * Nerve conduction test (04/25/2025) us Adelina Jeffrey MD NEUROLOGY ORDERABLES Final Result * (ABNORMAL) Lipid Panel, Standard (01/30/2025 7:29 AM EDT) Triglycerides 53 <150 mg/dL [facility] Comment:Desirable Triglyceri de: less than 150 mg/dLBorderline High Triglyceride 150-199 mg/dLHigh Triglyceride: 200-499 mg/dLVery High Triglyceride: greater than or equal to 5OO mg/dL Cholesterol 184 <200 mg/dL [facility] Comment:Desirable Cholestero l: less than 200 mg/dLBorderline High Cholesterol: 200-239 mg/dLHigh Cholesterol: greater than 239 mg/dL LDL Cholesterol Calculated 119(H) <100 mg/dL [facility] Comment:Desirable LDL: less than 100 mg/dLNear Optimal/Above Optimal LDL: 110- 129 mg/dLBorderline High LDL: 130-159 mg/dLHigh LDL: 160-189 mg/dLVery High LDL: greater than or equal to 190 mg/dL HDL Cholesterol 55 >40 mg/dL [facility] Comment:Desirable HDL: great er than 40 mg/dL Note: This HDL assay may give artificially low results in patients with liver disease. Blood Venous blood specimen / Unknown 01/30/2025 7:29 AM EDT 01/30/2025 7:29 AM EDT us Adelina Jeffrey MD LAB BLOOD ORDERABLES Final Result [facility] [address] [place] [phone] * CT colonography screening (01/22/2024 2:30 PM EDT) Anatomical Region Laterality Modality Colon Computed Tomogra phy 01/22/2024 2:30 PM EDT Narrative 01/27/2024 7:20 AM EDT [address] [address] [address] Scan Report Signed Patient: Casey Fitzgerald MR#: [id number] : 1975 Acct:[id number] Age/Sex: 48 / F ADM Date: 01/22/24 Loc: HO.[facility] Attending Dr: Mishel Wallace MD Ordering Physician: Mishel Wallace MD Date of Service: 01/22/24 Procedure(s): CT colonography Accession Number(s): [id number] cc: Adelina Moore MD; Mishel Wallace MD [...] in OV> 01/27/24 0715 DD/ 1430 TD/TT: Psychotherapist Counselor: CATHI Procedure Note Donotuseinterpreter, Image - 02/04/[address] [address] [address] Scan Report Signed Patient: Mechelle Fitzgerald#: M [id number] : 1975Acct:[id number] Age/Sex: 48 / FADM Date: 01/22/24 Loc: .[facility] Attending Dr: Mishel Wallace MD Ordering Physician: Mishel Wallace MD Date of Service: 01/22/24 Procedure(s): CT colonography Accession Number(s): [id number] cc: Adelina Moore MD; Mishel Wallace MD [...] in OV> 01/27/24 0715 DD/ 1430 TD/TT: Psychotherapist Counselor: CATHI [facility] External Provider IMG CT PROCEDURES Final Result * Hm Colonoscopy (01/22/2024 12:00 PM EDT) Historical Provider HEALTH MAINTENANCE Final Result * BI Mammogram Screening Tomosynthesis Bilateral (09/10/2023 2:14 PM EST) Anatomical Region Laterality Modality Breast Bilateral Mammography 09/10/2023 2:14 PM EST Narrative 10/06/2023 11:54 AM EDT [address] [place] [address] Mammography Report Signed Patient: Casey Fitzgerald MR#: M [id number] : 1975 Acct:[id number] Age/Sex: 48 / F ADM Date: 09/10/23 Loc: HO.MAMMO Attending Dr: Ranjith Spencer CNM Ordering Physician: RANJITH SPENCER CNM Results: 1 Negative Date of Service: 09/10/23 Follow Up: 1 Year From Orig ina Mammogram Procedure(s): MM tomosynthesis screening BI Accession Number(s): [id number] cc: Adelina Moore MD; RANJITH SPENCER CNM [...] in OV> 10/06/23 1150 DD/ 1414 TD/TT: Psychotherapist Counselor: Procedure Note Donotuseinterpreter, Image - 10/06/2023 [facility] [address] [place] [address] Mammography Report Signed Patient: Mechelle Fitzgerald#: M [id number] : 1975Acct:[id number] Age/Sex: 48 / FADM Date: 09/10/23 Loc: [facility] Attending Dr: Ranjith Spencer CNM Ordering Physician: RANJITH SPENCEResults: 1 Negative Date of Service: 09/10/23Follow Up: 1 Year From Orig ina Mammogram Procedure(s): MM tomosynthesis screening BI Accession Number(s): [id number] cc: Adelina Moore MD; RANJITH SPENCER CNM [...] for their next mammogram. Dictated By: Delores Curz MD Signed By: <Electronically signed by Delores Cruz MD in OV> 10/06/23 1150 DD/ 1414 TD/TT: Psychotherapist Counselor: Ranjith Spencer CN IMG BI PROCEDURES Final R esult * HIV-1/2 Antigen and Antibodies, Fourth Generation, with Reflexes (10/29/2022 9:46 AM EDT) HIV Antigen/Antibody, 4th Generation NON-REAC TIVE NON-REAC TIVE [employer] Comment: HIV-1 antigen and HIV-1/HIV-2 antibodies were [...] purpose. For additional information please refer to http://education.[employer]/faq/FPZ731 (This link is being provided for informational/ educational purposes only.) The performance of this assay has not been clinically validated in patients less than 2 years old. Blood Venous blood specimen / Unknown 10/29/2022 9:46 AM EDT 10/29/2022 9:46 AM EDT Narrative [facility] - 10/30/2022 2:40 PM EDT FASTING:NO FASTING: NO Gayatri Bauer [facility] LAB BLOOD ORDERABLES Final Res ult [facility] [address], [place] [address] [facility] [place] [employer] [address] [place] [address] * HEPATITIS C AB W/REFL TO HCV [...] a test for HCV RNA (test code 19888) is suggested. For additional information please refer to http://education.[employer]/faq/ETU41w7 (This link is being provided for informational/ educational purposes only.) 05/29/2021 4:01 PM EDT Adelina Jeffrey MD HISTORICAL/NON ORDERA BLE LABS Final Result [facility] [address] [place] [address], * THINPREP PAP (10/18/2020 12:00 AM EDT) [...] along with historic and current clinical information. Core Checker : SEE COMMENT [facility] Comment: BROOKE CT(ASCP) CT screening location: [place] [address] Interpretation/R esult: Negative for intraepithelial lesion or malignancy. [facility] LMP: NONE [facility] Prev. BX: NONE [facility] Prev. PAP: NONE [facility] SOURCE: None given [facility] Statement Of Adequacy: SEE COMMENT [facility] Comment: Satisfactory for evaluation. Endocervical/transformation zone component present. Age and/or menstrual status not provided 10/18/2020 us Adelina Jeffrey MD LAB PATHOLOGY ORDERAB LES Final Result Performing Organization Address [facility] Co de Phone Number [facility] [address] * HPV GENOTYPES 16,18/45 (10/18/2020 12:00 AM EDT) HPV 16 RNA NOT DETECTED NOT DETECTED [facility] HPV 18/45 RNA NOT DETECTED NOT DETECTED [facility] Comment: Methodology: Senior Telecommunications Consultant Mediated Amplification The analytical performance characteristics of this assay have been determined by [facility]. The modifications have not been cleared or approved by the FDA. This assay has been validated pursuant to the CLIA regulations and is used for clinical purposes. 10/18/2020 us Adelina Jeffrey MD LAB CYTOLOGY ORDERABL ES Final Result Performing Organization Address [facility] de Phone Number [facility] [address] from Last 3 Months or Most Recently Relevant to Health Maintenance Insurance [facility] C3 DENTAL-[facility] MEDICAID STAND ADULT Care Teams Informatics Manager Relationship Specialty Start Date End Date Adelina Moore MD [address] [place] [phone] PCP - General Family Medicine 09/14/18
--- OUTSIDE RECORDS SUMMARY | 2025-07-18 15:17 | XMS_ITS | Encounter Summary ---
Author Organization [facility] Address [address] [place] [address] Phone Care Team Providers Care Education Supervisor Name Role Phone Pcp, Unknown Primary Care Provider Unavailabl e Encounter Details Date Type Department Care Team (Late st Contact Info) Description 05/31/2020 Procedure [facility] [address] [place] [address] [place] [address] Social History Tobacco Use Types Packs/Day Years [...] on filedocumented in this encounter Care Teams Education Supervisor Relationship Specialty Start Date End Date Pcp, Unknown PCP - General 05/29/20 documented as of this encounter Additional Source Comments The information contained in this document represents components of the legal health record. It is not the complete legal health record.[facility]
--- OUTSIDE RECORDS SUMMARY | 2025-07-18 15:17 | XMS_ITS | Encounter Summary ---
Author Organization [facility] Address [address] [facility] [address] [place] [phone] Phone Care Team Providers Care Parking Regulation Enforcement Officer Name Role Phone Pcp, Unknown Primary Care Provider Unavailabl e Encounter Details Date Type Department Care Team (Late st Contact Info) Description 05/31/2020 Ancillary Orders [facility] [address] [place] [address] [place] [address] Rebekah De Luna MD [address] [place] [phone] [email or web address] Palpitation Social History Tobacco Use Types Packs/Day [...] Palpitations documented in this encounter Care Teams Parking Regulation Enforcement Officer Relationship Specialty Start Date End Date Pcp, Unknown PCP - General 05/29/20 documented as of this encounter Additional Source Comments The information contained in this document represents components of the legal health record. It is not the complete legal health record.[facility]
--- OUTSIDE RECORDS SUMMARY | 2025-07-18 15:17 | XMS_ITS | Encounter Summary ---
Author Organization [employer] Address [address] [place] [address] 7 [place] [address] Care Team Providers Care Dental Scheduling Coordinator Name Role Phone Adelina Moore MD Primary Care Provide r Encounter Details Date Type Department Care Team (Late st Contact Info) Description 12/23/2022 Abstract [facility] ADULT DENTAL [address] [place] [address] Maryan Ceron [address] [place] [address] Social History Tobacco Use Types Packs/Day Years [...] Description 07/31/2025 3:30 PM EST Office Visit [facility] MED[facility] [address] [place] [address] Adelina Moore MD [address] [place] [address] documented as of this encounter Visit Diagnoses Not on filedocumented in this encounter Care Teams Dental Scheduling Coordinator Relationship Specialty Start Date End Date Adelina Moore MD [address] [place] [address] PCP - General Family Medicine 09/14/18 documented as of this encounter
--- OUTSIDE RECORDS SUMMARY | 2025-07-18 15:17 | XMS_ITS | Encounter Summary ---
Author Organization [employer] Address [address] [place] [address] 7 [place] [address] Care Team Providers Care Rn Endocrinology Name Role Phone Adelina Moore MD Primary Care Provide r Encounter Details Date Type Department Care Team (Late st Contact Info) Description 12/10/2022 Abstract [facility] [address] [place] [address] Maryan Ceron [address] [place] [address] Social History Tobacco Use Types Packs/Day Years [...] Description 07/31/2025 3:30 PM EST Office Visit [facility] [address] [place] [address] Adelina Moore MD [address] [place] [address] documented as of this encounter Visit Diagnoses Not on filedocumented in this encounter Care Teams Rn Endocrinology Relationship Specialty Start Date End Date Adelina Moore MD [address] [place] [address] PCP - General Family Medicine 09/14/18 documented as of this encounter
--- OUTSIDE RECORDS SUMMARY | 2025-07-18 15:17 | XMS_ITS | Encounter Summary ---
Author Organization [employer] Address [address] 7t [place] [address] Care Team Providers Care Knotter Name Role Phone Adelina Moore MD Primary Care Provide r Encounter Details Date Type Department Care Team (Late st Contact Info) Description 01/25/2024 Orders Only [facility] [address] [place] [address] Provider, MD Sudeep Social History Tobacco Use [...] the past 12 months, has t he 0xdata, gas, oil or water company threatened to [...] 07/31/2025 3:30 PM EST Office Visit [facility] [address] [place] [address] Adelina Moore MD [address] [place] [phone] documented as of this encounter Procedures Procedure [...] documented as of this encounter Care Teams Knotter Relationship Specialty Start Date End Date Adelina Moore MD [address] [place] [phone] PCP - General Family Medicine 09/14/18 documented as of this encounter
--- OUTSIDE RECORDS SUMMARY | 2025-07-18 15:17 | XMS_ITS | Encounter Summary ---
Author Organization [employer] Address [address] [place] [address] 7 [place] [address] Care Team Providers Care Weaver Axminster Name Role Phone Adelina Moore MD Primary Care Provide r Encounter Details Date Type Department Care Team (Late Contact Info) Description 07/31/2023 Orders Only [facility] [address] [place] [phone] Adelina Moore MD [address] [place] [address] [phone] Acquired hypothyroidism (Primary Dx) Social History Tobacco [...] Description 07/31/2025 3:30 PM EST Office Visit [facility] [address] [place] [address] [phone] Adelina Moore MD [address] [place] [address] [phone] documented as of this encounter Visit Diagnoses Diagnosis Acquired hypothyroidism- Primary Unspecified hypothyroidism documented in this encounter Care Teams Weaver Axminster Relationship Specialty Start Date End Date Adelina Moore MD [address] [place] [address] PCP - General Family Medicine 09/14/18 documented as of this encounter
--- OUTSIDE RECORDS SUMMARY | 2025-07-18 15:17 | XMS_ITS | Clinical Summary ---
Author Organization [facility] Address [address] [address] Phone Care Team Providers Care Explosives Detonator Name Role Phone Pcp, Unknown Primary Care [...] 1975 LIPID PANEL 1975 DEPRESSION SCREENING 1987 HEPATITIS C SCREENING 1993 HIV ONE-TIME SCREENING (18-6 5 YEARS) 1993 PAP SMEAR 1996 MAMMOGRAM 2015 INFLUENZA VACCINE (#1) 2025 0, 05/23/2019, 09/14/2018 [...] topic Medical Devices Not on file Insurance [facility] NON NSPG PCP [employer] [facility] NON NSPG PCP [employer] [facility] NON NSPG PCP [employer] [facility] NON NSPG PCP [employer] [facility] NON NSPG PCP [employer] [facility] NON NSPG PCP [employer] [facility] NON NSPG PCP [facility] [facility] NON NSPG PCP [employer] [facility] NON NSPG PCP [employer] Care Teams Explosives Detonator Relationship Specialty Start Date End Date Pcp, Unknown PCP - General 05/29/20 Additional Source Comments The information contained in this document represents components of the legal health record. It is not the complete legal health record.[facility]
== END 2025-07-18 14:54 | disposition home or self-care (01) ==
LOC: HO.HOS 14:03
PROVIDERS: PCP Internal Medicine; Visit Provider Physician Assistant
DX: S82.142A Displaced bicondylar fracture of left tibia, initial encounter for closed fracture (principal)
CPT/HCPCS: 99204

== ENCOUNTER → 2025-07-18 14:02 | Outpatient (BNVA) | payer MEDICAID, SELFPAY | PROVIDERS: PCP Internal Medicine; Visit Provider Physician Assistant | DX: M25.562 Pain in left knee (principal) | CPT/HCPCS: 99212 ==